=== PATIENT | female | born 1935 | race Caucasian/White ===

== ENCOUNTER 2017-09-24 19:55 | Inpatient (IN) | payer OTHER, MEDICARE ==
[~2017-09-24] VITALS: Ht 152.4 cm; Wt 64.6 kg
[~2017-09-24 19:55] MED LIST: ATENOLOL50 M1 PO; ATIVAN0.5 M1 PO; AUGMENTIN 875-1 EACH PO; CENTRUM SILVER1 EAC3 PO; COUMADIN 2.5 M2.5 MG PO; COUMADIN 5 MG TA5 MG PO; DELZICOL400 MG PO; ENTOCORT EC3 MG PO; ESCITALOPRAM OX10 MG PO; FERROUS SULFAT325 M3 PO; FUROSEMIDE40 M1 PO; IMODIUM 2 MG. CA2 MG PO; KLOR-CON M1010 ME1 PO; LISINOPRIL20 M1 PO; LOMOTIL 0.025 M1 TAB PO; LOPERAMIDE2 M2 PO; MULTAQ 400MG400 MG PO; Mycostatin Susp PO; OCUVITE WITH L1 EACH PO; PRAVASTATIN SOD40 M2 PO; PREDNISONE 20MG20 MG PO; PREDNISONE20 MG PO; PREDNISONE5 MG PO; TESSALON PERLE100 M1 PO; TRAMADOL HCL50 M1 PO; TYLENOL EXTRA500 M2 PO; VALACYCLOVIR1 GM PO; VENTOLIN HFA18 GM INH
--- NOTE | 2017-09-24 20:43 | ED GI/GU/ABDOMINAL COMPLAINT ---
History of Present Illness General Chief Complaint: General Adult Stated Complaint: "ABD PAIN,TEMP,SWEATING, NAUSEA AND VOMITING" Source: patient, family Exam Limitations: no limitations Vital Signs & Intake/Output Vital Signs & Intake/Output Vital Signs Date Time Temp Pulse Resp B/P B/P Pulse O2 O2 Flow FiO2 Mean Ox Delivery Rate 09/247 97.6 62 18 164/78 97 Room Air 09/25 2003 97.7 59 16 130/75 97 Room Air ED Intake and Output 09/25 0000 09/24 1200 Intake Total 1000 Output Total Balance 1000 Intake, IV 1000 Patient 134 lb Weight Weight Reported by Patient Measurement Method Allergies Coded Allergies: penicillamine (PER PT BREAKS OUT IN RASH ON HANDS 04/27/15) Reconcile Medications Acetaminophen (Tylenol Xstr) 500 MG TAB 1 TAB PO PRN PAIN (Reported) Adalimumab (Humira Pen) 40 MG/0.8 ML PEN.IJ.KIT UC (Reported) Albuterol Sulfate (Ventolin Hfa) 90 MCG HFA.AER.AD 2 PUF INH Q4-6 PRN PRN cough/wheeze Atenolol 50 MG TAB 1 TAB PO QAM BP (Reported) Atenolol 50 MG TABLET 50 MG PO NIGHTLY HTN (Reported) Cu/Se/Vit A/Vit C/Vit E/Zinc (Ocuvite) 1 TAB TAB 1 TAB PO DAILY SUPPLEMENT ( Reported) Dabigatran Etexilate Mesylate (Pradaxa 150 MG) 150 MG CAPSULE 150 MG PO BID AFIB (Reported) Digoxin 125 MCG TABLET 125 MCG PO DAILY HEART (Reported) Diltiazem HCl (Diltiazem 24HR ER) 120 MG CAP.ER.24H 120 MG PO DAILY HEART ( Reported) Escitalopram Oxalate 10 MG TAB 1 TAB PO DAILY MENTAL HEALTH (Reported) Ferrous Sulfate 325 MG TAB 1 TAB PO TID SUPPLEMENT (Reported) Furosemide 40 MG TAB 1 TAB PO DAILY DIURETIC (Reported) Lisinopril 20 MG TAB 1 TAB PO QAM BP (Reported) Loperamide Hydrochloride (Loperamide) 2 MG TAB 1 TAB PO DAILY PRN DIARRHEA ( Reported) Lorazepam (Ativan) 0.5 MG TAB 1 TAB PO DAILY PRN ANXIETY (Reported) Multivitamin, Minerals, and (Centrum Silver) 1 TAB TAB 1 TAB PO DAILY SUPPLEMENT (Reported) Potassium Chloride (Klor-Con M10) [address] 1 TAB PO DAILY SUPPLEMENT ( Reported) Pravastatin Sodium 40 MG TAB 1 TAB PO QPM CHOLESTEROL (Reported) TRAMADOL HCL (Tramadol) 50 MG TAB 1 TAB PO DAILY PRN PAIN (Reported) Triage Note: REPORTS ABDOMINAL PAIN AND NAUSEA SINCE LAST NIGHT. LAST BM MONDAY AM. Triage Nurses Notes Reviewed? yes ? N Is pt currently ? No Duration: constant Timing: recent history Quality/Severity: moderate Severity Numbers: 5 Location: generalized abdomen Radiation: no radiation HPI: Patient is an 82-year-old female with past medical history of BRADYCARDIA WITH SSS PACEMAKER, A.fib PRADAXA, Hypertension, hyperlipidemia, Crohn's disease, arthritis, and macular degeneration and small bowel structure and who presents emergency room with a 24-hour history of gradual onset of abdominal pain that is generalized with distention patient is unable tolerate anything by mouth last bowel movement was Monday. Denies any fever chills back pain (Eladio Del Toro) Past History Travel History Traveled to [place] past 21 day No Medical History Any Pertinent Medical History? 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 status post pacemaker Psychosocial History Who do you live with Patient/Self Services at Home None What is your primary language Macedonian Tobacco Use: Never used Family History Family History, If Any: MOTHER, , Age 94; Cause: Natural . FATHER, , Age 33; Cause: Accident. Hx Contributory? No (Eladio Del Toro) Review of Systems Review of Systems Constitutional: Reports: no symptoms. EENTM: Reports: no symptoms. Respiratory: Reports: no symptoms. Cardiovascular: Reports: no symptoms. GI: Reports: see HPI, abdominal pain. Genitourinary: Reports: no symptoms. Musculoskeletal: Reports: no symptoms. Skin: Reports: no symptoms. Neurological/Psychological: Reports: no symptoms. Hematologic/Endocrine: Reports: no symptoms. Immunologic/Allergic: Reports: no symptoms. All Other Systems: Reviewed and Negative (Eladio Del Toro) Physical Exam Physical Exam General Appearance: no apparent distress, alert Head: atraumatic Eyes: Bilateral: normal appearance. Ears, Nose, Throat, Mouth: moist mucous membrane Neck: normal inspection Respiratory: no respiratory distress Cardiovascular: irregularly irregular Gastrointestinal: distention, tenderness, HYPERACTIVE BOWEL SOUNDS Extremities: normal range of motion Neurologic/Psych: no motor/sensory deficits, awake Core Measures ACS in differential dx? No Sepsis Present: No Sepsis Focused Exam Completed? No (Eladio Del Toro) Progress Differential Diagnosis: appendicitis, biliary colic, bowel obstruction, colon cancer, diverticulitis, endometritis, esophageal varices, inflamm bowel dis, kidney stone, pancreatitis, PID/cervicitis, peptic ulcer, PUD/GERD, perforated viscous, SBO, UTI/pyelo Plan of Care: Orders Procedure Date/time Status Nothing by Mouth 09/25 B Active EKG 09/25 0013 Active LACTIC ACID 09/24 2354 Complete Admit to inpatient 09/24 2340 Active LACTIC ACID 09/24 2054 Complete PARTIAL THROMBOPLASTIN TIME 09/24 2052 Complete PROTHROMBIN TIME 09/24 2052 Complete COMPREHENSIVE METABOLIC PANEL 09/24 2052 Complete CBC WITHOUT DIFFERENTIAL 09/24 2052 Complete TYPE & SCREEN (NOT X-MATCH) 09/24 2052 Complete Current Medications Sig/Yesy Start time Last Medication Dose Stop Time Status Admin Lorazepam 1 MG ONCE ONE 09/24 2144 CAN (Ativan) 09/24 2145 Laboratory Tests 09/24/17 2352: Lactic Acid 1.7 09/24/172112: Lactic Acid 1.6 09/24/172112: Anion Gap 11, Estimated GFR 48 L, BUN/Creatinine Ratio 22.7, Glucose 127 H, Calcium 10.6 H, Total Bilirubin 1.2, AST 48 H, ALT 56 H, Alkaline Phosphatase 81, Total Protein 8.0, Albumin 4.3, Globulin 3.7, Albumin/Globulin Ratio 1.2, PT 16.6 H, INR 1.52 H, APTT 67 H, CBC w Diff NO MAN DIFF REQ, RBC 4.42, MCV 99.5 H, MCH 33.4 H, MCHC 33.6, RDW 14.6 H, MPV 8.2, Gran % 78.4 H, Lymphocytes % 13.9 L, Monocytes % 7.5, Eosinophils % 0, Basophils % 0.2, Absolute Granulocytes 11.3 H, Absolute Lymphocytes 2.0, Absolute Monocytes 1.1 H, Absolute Eosinophils 0, Absolute Basophils 0 Patient upon initial presentation has concerns of small bowel obstruction due to x-ray findings Discussed patient with surgical PA who discussed the clinical presentation to Dr. Lewis who advised that patient will be going to the OR tonight for concerns of bowel necrosis Patient did take Pradaxa today praxabind was administered due to patient going to the OR tonight Discussed disposition plan with patient Diagnostic Imaging: Viewed by Me: Radiology Read, CT Scan. Radiology Impression: acute abnormality Initial ED EKG: AFIB Comments: PATIENT: PRATIK JERONIMO PRESENT AGE: 82 PATIENT ACCOUNT NO: [id number] : 35 LOCATION: [facility] ORDERING PHYSICIAN: Eladio RENO SERVICE DATE: 09/24/17 EXAM TYPE: CAT - CT ABD & PELVIS W IV CONTRAST EXAMINATION: CT ABDOMEN AND PELVIS WITH CONTRAST CLINICAL INFORMATION: Concern for small bowel obstruction. COMPARISON: Radiograph from earlier today. CT from 12/22/2015. TECHNIQUE: Multidetector volumetric imaging was performed of the abdomen and pelvis following IV administration of 95 mL of Optiray 320 intravenous contrast. Sagittal and coronal reformatted images were obtained on the technologist's workstation. DLP: 261 mGy-cm FINDINGS: LUNG BASES: Nodular opacity at the right lung base measuring 1 cm. This is similar to prior, suggesting chronic scarring. The visualized cardiac structures are unremarkable. LIVER, GALLBLADDER, AND BILIARY TREE: The liver is normal in size, shape, and attenuation. No focal hepatic lesion.. Status post cholecystectomy. There is diffuse intrahepatic and extrahepatic biliary ductal dilatation. This appears increased from the previous CT from 2016. The common bile duct measures up to 2 cm. No ductal filling defect is seen. PANCREAS: Unremarkable. SPLEEN: Unremarkable. ADRENAL GLANDS: Unremarkable. KIDNEYS AND URETERS: The kidneys are normal in size, shape, and attenuation. No hydronephrosis, hydroureter, or calculi seen. No perinephric stranding. Multiple bilateral renal cysts. BLADDER: Unremarkable. GASTROINTESTINAL TRACT: The stomach is unremarkable. There is diffuse small bowel dilatation. This extends to a transition point within a right inguinal hernia, with the bowel entering the hernia dilated and the bowel exiting the hernia decompressed. Scattered stool within the colon which is otherwise decompressed. Colonic diverticulosis without diverticulitis. No free air or free fluid. ABDOMINAL WALL: Small right inguinal hernia containing small bowel which is obstructing. LYMPH NODES: Normal. VASCULAR: Normal caliber aorta. Mild atherosclerotic calcifications. PELVIC VISCERA: Unremarkable. OSSEOUS STRUCTURES: No acute or suspicious osseous abnormality. Prominent scoliotic curvature of the spine with multilevel degenerative changes. IMPRESSION: Small bowel obstruction with transition point at a right inguinal hernia. This appearance corresponds with the appearance on prior radiograph. Status post cholecystectomy. Diffuse intrahepatic and extrahepatic biliary ductal dilatation, increased from prior. No ductal filling defect is seen. DICTATED BY: Richard Lee MD DATE/TIME DICTATED:09/24/172315 LEGAL ANALYST:DONNA DATE/TIME TRANSCRIBED:09/24/17 (Eladio Del Toro) Departure Departure Disposition: STILL A PATIENT Condition: Guarded Clinical Impression Primary Impression: Small bowel obstruction Secondary Impressions: Incarcerated hernia Referrals: Monserrat Montes (PCP/Family) Departure Forms: Customer Survey General Discharge Information (Eladio Del Toro) OR/GI Note Spoke With: Jorje Lewis DO ED Treatment Decision: PRATIK JERONIMO requires urgent operative management or an emergent procedure that cannot be performed in the Emergency Room setting. Transport To: [facility] PA/BUSGIRL Co-Sign Statement Statement: ED Attending supervision documentation- [X] I saw and evaluated the patient. I have also reviewed all the pertinent lab results and diagnostic results. I agree with the findings and the plan of care as documented in the PA's/BUSGIRL's documentation. [X] I have reviewed the ED Record and agree with the PA's/BUSGIRL's documentation. [] Additions or exceptions (if any) to the PAs/BUSGIRL's note and plan are summarized below: [Incarcerated hernia. Unable to reduce in the emergency department. SHe will require operative correction.] (Sotero TAPIA,Mayito Underwood) Critical Care Note Critical Care Note Critical Care Time: 30-74 min (Eladio Del Toro) (Eladio Del Toro)
--- NOTE | 2017-09-24 20:45 | RADIOLOGY REPORT ---
EXAMINATION: XR ABDOMEN CLINICAL INDICATION: Abdominal pain. Constipation. COMPARISON: Abdominal radiography 06/07/2011. TECHNIQUE: AP view of the abdomen. FINDINGS: There are dilated loops of small bowel and a paucity of gas in the colon, concerning for small bowel obstruction. No pneumoperitoneum demonstrated on this supine radiograph. Right upper quadrant surgical clips. Scattered vascular calcifications. Decreased bone mineral density. Convex leftward thoracolumbar curvature. IMPRESSION: Dilated small bowel loops concerning for small bowel obstruction. This can be further evaluated with CT scan of the abdomen and pelvis.
[2017-09-24 21:23] LABS: ABSOLUTE BASOPHIL COUNT 0 /CUMM (0.0-0.2); ABSOLUTE EOSINOPHIL COUNT 0 /CUMM (0.0-0.7); ABSOLUTE GRANULOCYTE CT 11.3 /CUMM (1.4-6.5); ABSOLUTE MONOCYTE COUNT 1.1 /CUMM (0.10-0.60); BASOPHIL % 0.2 % (0.0-2.0); EOSINOPHIL % 0 % (0-5); HEMATOCRIT 43.9 % (37-47); MEAN CORPUSCULAR HGB 33.4 PG (27.0-31.0); MEAN CORPUSCULAR HGB CONC 33.6 G/DL (33.0-37.0); MEAN CORPUSCULAR VOLUME 99.5 FL (81.0-99.0); MEAN PLATELET VOLUME 8.2 FL (7.4-10.4); PLATELET COUNT 298 /CUMM (130-400); RBC DISTRIBUTION WIDTH 14.6 % (11.5-14.5); RED BLOOD CELL CT 4.42 /CUMM (4.20-5.40); WHITE BLOOD CELL COUNT 14.4 /CUMM (4.8-10.8)
[2017-09-24 21:24] LABS: GRANULOCYTE % 78.4 % (42.2-75.2)
--- NOTE | 2017-09-24 21:32 | History & Physical Pre-Op ---
Spring Souza 09/24/171: General Information and HPI History of Present Illness: 82yoF presents to ED with persistant abd pain since yesterday am, with nausea and green bilious vomiting at home last night and today. PMHx afib on pradaxa ( last dose this am), sss sp ppm, crohns disease on humira (Dr. Marti), htn, hyperlipidemia, macular degeneration, sp hysterectomy, sp cholecystectomy. Describes pain as generalized throughout abdomen, though worst in right groin. Per pt, she has a known right inguinal fat containing hernia that she has not had fixed. Last BM was this am, small and hard. no appetite, tried to eat a yogurt at lunch today though not hungry. no cp/sob. No urinary complaints. Allergies/Medications Allergies: Coded Allergies: penicillamine (PER PT BREAKS OUT IN RASH ON HANDS 04/27/15) Home Med list Acetaminophen (Tylenol Xstr) 500 MG TAB 1 TAB PO PRN PAIN (Reported) Adalimumab (Humira Pen) 40 MG/0.8 ML PEN.IJ.KIT UC (Reported) Albuterol Sulfate (Ventolin Hfa) 90 MCG HFA.AER.AD 2 PUF INH Q4-6 PRN PRN cough/wheeze Atenolol 50 MG TAB 1 TAB PO QAM BP (Reported) Atenolol 50 MG TABLET 50 MG PO NIGHTLY HTN (Reported) Cu/Se/Vit A/Vit C/Vit E/Zinc (Ocuvite) 1 TAB TAB 1 TAB PO DAILY SUPPLEMENT ( Reported) Dabigatran Etexilate Mesylate (Pradaxa 150 MG) 150 MG CAPSULE 150 MG PO BID AFIB (Reported) Digoxin 125 MCG TABLET 125 MCG PO DAILY HEART (Reported) Diltiazem HCl (Diltiazem 24HR ER) 120 MG CAP.ER.24H 120 MG PO DAILY HEART ( Reported) Escitalopram Oxalate 10 MG TAB 1 TAB PO DAILY MENTAL HEALTH (Reported) Ferrous Sulfate 325 MG TAB 1 TAB PO TID SUPPLEMENT (Reported) Furosemide 40 MG TAB 1 TAB PO DAILY DIURETIC (Reported) Lisinopril 20 MG TAB 1 TAB PO QAM BP (Reported) Loperamide Hydrochloride (Loperamide) 2 MG TAB 1 TAB PO DAILY PRN DIARRHEA ( Reported) Lorazepam (Ativan) 0.5 MG TAB 1 TAB PO DAILY PRN ANXIETY (Reported) Multivitamin, Minerals, and (Centrum Silver) 1 TAB TAB 1 TAB PO DAILY SUPPLEMENT (Reported) Potassium Chloride (Klor-Con M10) [address] TAB PO DAILY SUPPLEMENT ( Reported) Pravastatin Sodium 40 MG TAB 1 TAB PO QPM CHOLESTEROL (Reported) TRAMADOL HCL (Tramadol) 50 MG TAB 1 TAB PO DAILY PRN PAIN (Reported) Past History Medical History EENT: hearing loss, macular degeneration Cardiovascular: AFIB, hypertension, hyperlipidemia Gastrointestinal: Crohn's disease Renal: RENAL INSUFFICENCY Musculoskeletal: ARTHRITIS Psychiatric: anxiety, depression Blood Disorders: anemia History of MRSA: Yes History of VRE: No History of CDIFF: No Surgical History Pertinent Surgical History: cholecystectomy, hysterectomy, knee replacement (B/L ), PPM rotator cuff surgery. status post pacemaker Past Family/Social History Family History Relations & Conditions if any MOTHER, , Age 94; Cause: Natural . FATHER, , Age 33; Cause: Accident. Psychosocial History Who Do You Live With? self Services at Home None Primary Language: Tajik Living Will? unknown Power of Citizenship Instructor/HCP? unknown Functional Ability ADLs Independent: dressing, eating, toileting, bathing. Ambulation: independent IADLs Independent: shopping, housework, finances, food prep, telephone, transportation , medication admin. Exam & Diagnostic Data Last 24 Hrs of Vital Signs/I&O Vital Signs Date Time Temp Pulse Resp B/P B/P Pulse O2 O2 Flow FiO2 Mean Ox Delivery Rate 09/25 2003 97.7 59 16 130/75 97 Room Air Physical Exam: gen- nad card-s1s2 pulm- ctab abd-softly distended, ttp throughout, firm tender mass right groin-nonreduciblee , without skin changes. ext- +edema bl le, calves soft Diagnostic Data Other Results AXR: SBO CT AP: pending Assessment/Plan Assessment/Plan: A- 82yoF with Sbo, likely due to incarcerated r inguinal hernia, with hx afib on pradaxa with last dose this am, otherwise stable P- npo ?ngt attempt reduction at bedside dw dr lewis As Ranked By This Provider Problem List: 1. SMALL BOWEL OBSTRUCTION 2. Atrial fibrillation 3. History of - hysterectomy 4. History of cholecystectomy 5. Essential hypertension 6. Implantation of cardiac pacemaker 7. Replacement of total knee joint 8. Right inguinal hernia 9. Crohns disease Jorje Lewis DO 09/25/17 0250: Attending MD Review Statement Attending Statement Attending MD Statement: examined this patient, discuss w/resident/PA/REGIONAL PROJECT MANAGER, agreed w/resident/PA/REGIONAL PROJECT MANAGER, reviewed EMR data (avail), reviewed images Attending Assessment/Plan: Patient seen and examined, agree with above. Abdominal pain/N/V since last night , noticed the right groin bulge today. AVSS. Abd-softly distended, +right groin hernia non-reducible and tender. Labs reviewed. CT scan - SBO with transition point in the groin hernia. NPO/IVF, plan for hernia repair with possible bowel resection tonight. D/W patient and ED staff.
[2017-09-24 21:35] LABS: PT 16.6 SEC (9.4-12.5); PTT 67 SEC (25-37)
[2017-09-24] MEDS ORDERED: PRADAXA150 M1 PO (21:41)
[2017-09-24] MEDS ORDERED: DIGOXIN125 MCG PO (21:42)
[2017-09-24] MEDS ORDERED: HUMIRA PEN40 MG/0.8 (21:43)
[2017-09-24] MEDS ORDERED: DILTIAZEM 24HR120 MG PO (21:43)
--- NOTE | 2017-09-24 23:26 | CT SCAN REPORT ---
EXAMINATION: CT ABDOMEN AND PELVIS WITH CONTRAST CLINICAL INFORMATION: Concern for small bowel obstruction. COMPARISON: Radiograph from earlier today. CT from 12/22/2015. TECHNIQUE: Multidetector volumetric imaging was performed of the abdomen and pelvis following IV administration of 95 mL of Optiray 320 intravenous contrast. Sagittal and coronal reformatted images were obtained on the technologist's workstation. DLP: 261 mGy-cm FINDINGS: LUNG BASES: Nodular opacity at the right lung base measuring 1 cm. This is similar to prior, suggesting chronic scarring. The visualized cardiac structures are unremarkable. LIVER, GALLBLADDER, AND BILIARY TREE: The liver is normal in size, shape, and attenuation. No focal hepatic lesion.. Status post cholecystectomy. There is diffuse intrahepatic and extrahepatic biliary ductal dilatation. This appears increased from the previous CT from 2016. The common bile duct measures up to 2 cm. No ductal filling defect is seen. PANCREAS: Unremarkable. SPLEEN: Unremarkable. ADRENAL GLANDS: Unremarkable. KIDNEYS AND URETERS: The kidneys are normal in size, shape, and attenuation. No hydronephrosis, hydroureter, or calculi seen. No perinephric stranding. Multiple bilateral renal cysts. BLADDER: Unremarkable. GASTROINTESTINAL TRACT: The stomach is unremarkable. There is diffuse small bowel dilatation. This extends to a transition point within a right inguinal hernia, with the bowel entering the hernia dilated and the bowel exiting the hernia decompressed. Scattered stool within the colon which is otherwise decompressed. Colonic diverticulosis without diverticulitis. No free air or free fluid. ABDOMINAL WALL: Small right inguinal hernia containing small bowel which is obstructing. LYMPH NODES: Normal. VASCULAR: Normal caliber aorta. Mild atherosclerotic calcifications. PELVIC VISCERA: Unremarkable. OSSEOUS STRUCTURES: No acute or suspicious osseous abnormality. Prominent scoliotic curvature of the spine with multilevel degenerative changes. IMPRESSION: Small bowel obstruction with transition point at a right inguinal hernia. This appearance corresponds with the appearance on prior radiograph. Status post cholecystectomy. Diffuse intrahepatic and extrahepatic biliary ductal dilatation, increased from prior. No ductal filling defect is seen.
--- NOTE | 2017-09-25 03:05 | Operative Report ---
Operative/Inv Procedure Report Surgery Date: 09/25/17 Name of Procedure: Open right femoral hernia repair with mesh, laparotomy, open small bowel resection Pre-Operative Diagnosis: Incarcerated right inguinal hernia with obstruction Post-Operative Diagnosis: Same Estimated Blood Loss: less than 50ml Surgeon/Button Decorating Machine Operator: Jorje Bryant Anesthesia: general endotracheal tube IV Fluids: 1300 cc Drains: None Specimens: Portion of small bowel Complications: None Condition: Stable Operative Indication: This is an 82-year-old female who presented to the emergency room with nausea vomiting and some abdominal pain. Patient was found to have an incarcerated right femoral hernia causing obstruction. An open hernia repair with possible small bowel resection was discussed in detail. All risks including but not limited to bleeding, infection, and injury to surrounding bowel were discussed in detail. I also explained to the patient that given her history of Crohn's it may complicate recovery if a small bowel resection is needed. It may cause fistulas and breakdown of the anastomosis. The patient understands everything and wishes to proceed. Operative/Procedure Note Note: The patient was brought to the operating room and placed on table in supine position. Venodyne stockings were placed in adequate general endotracheal anesthesia was obtained. Patient was prepped and draped in standard surgical fashion. Began the procedure by making approximately 5 cm incision over the patient's right groin. The incision was carried through subcutaneous tissue to Alecia's fascia which was opened using Bovie electrocautery. External oblique aponeurosis was encountered and we noted a hard bulge inferior to the inguinal canal. Dissection was then carried below the inguinal canal and we noted a necrotic/ischemic appearing hernia sac coming out of the femoral canal. The hernia sac was circumferentially dissected and opened and the small bowel within the hernia sac appeared ischemic as well. The small bowel was then reduced and the right groin was irrigated. Following this a Gail synecor mesh was cut to size and made into a plug and inserted into the femoral canal. It was secured using 2-0 Prolene suture. The right groin was once again irrigated. Fascia was then reapproximated using 2-0 Vicryl suture and 3-0 Vicryl suture. The skin was closed using bethany. Following this a 5 cm midline incision was made around the umbilicus. The incision was carried down to the fascia and the fascia was opened the length of the incision. Right away we noted distended and collapsed loops of small bowel. Small bowel was then brought out of the abdominal cavity and there was a loop that was adhesed down into the right groin. That small bowel was then dissected out and brought into view and it was found that that was the area of the incarcerated small bowel. At small bowel still appeared ischemic so a decision was made to do a small bowel resection. Small bowel was divided proximally and distally to the area of ischemia using 60 mm Endo LAVONNE araujo staple load. The mesentery was divided using clamps and ties. Specimen was then handed off the field. Following this a side to side small bowel anastomosis was created using a 60 mm Endo LAVONNE araujo stapler as well. Common enterotomy was closed using another stapler also. We examined the anastomosis it appeared intact and widely patent. Several 3-0 Silk sutures were placed in the crotch of the staple line and along the anterior line imbricating it. Small mesenteric defect was closed using 2-0 silk suture. Once again examined the anastomosis and appeared intact without any bleeding. Small bowel was then returned back into the abdominal cavity and the abdominal cavity was irrigated until clear. Omentum was placed over the small bowel. Abdominal fascia was closed using #1 Maxon suture in a running fashion. Skin was closed using bethany. Sterile dressings were placed over both incisions. The patient was successfully extubated and transferred to the recovery room in stable condition. The patient tolerated procedure well no complications. Findings: Incarcerated loop of small bowel appeared ischemic within the femoral hernia, GORE synecor mesh used CC: Nayely RENO,Monserrat Cota
[2017-09-25 05:48] VITALS: BP 110/60
--- NOTE | 2017-09-25 08:12 | PN- General Surgery ---
See Addendum Subjective Subjective: POC s/p lap to open repair inc sm bowel hernia w/sm bowel resection doing well this am deneis cp sob, mild abd pain Objective Vital Signs and I&Os Vital Signs Date Time Temp Pulse Resp B/P B/P Pulse O2 O2 Flow FiO2 Mean Ox Delivery Rate 09/26 547 98.2 54 20 110/60 95 Nasal 6.0L Cannula 09/25 0448 Nasal 6.0L Cannula 09/24 2347 97.6 62 18 164/78 97 Room Air 09/25 2003 97.7 59 16 130/75 97 Room Air Intake & Output 09/25 1600 09/25 0809/25 0000 09/24 1600 09/24 0000 Intake Total 150 1000 Output Total 200 Balance -50 1000 Intake, IV 150 1000 Output, Urine 200 Patient 135 lb 134 lb Weight Weight Bed scale Reported by Patient Measurement Method Physical Exam: cv: afib lungs: clear abd: softly distended +bs, drsg drg no guarding to palp ext: warm, distal cms intact Assessment/Plan Assessment/Plan surgical stable discussed with dr clemente plan d/c ngt ice chips today oob/ambulate restart pradaxa trevin 8/[address] Marti(known patient on Humira) consult dr oakley, cardilogy, afib/pradaxa, and need for tele Core Measures Venous Thromboembolism VTE Risk Factors Age>40 No Mechanical VTE Prophylaxis d/t N/A MechProphylax Ordered No VTE Pharm Prophylaxis d/t NA PharmProphylax ordered
[2017-09-25 08:25] LABS: ABSOLUTE BASOPHIL COUNT 0 /CUMM (0.0-0.2); ABSOLUTE EOSINOPHIL COUNT 0 /CUMM (0.0-0.7); ABSOLUTE LYMPH COUNT 0.8 /CUMM (1.2-3.4); EOSINOPHIL % 0 % (0-5); RBC DISTRIBUTION WIDTH 14.7 % (11.5-14.5); RED BLOOD CELL CT 3.85 /CUMM (4.20-5.40)
[2017-09-25 08:37] LABS: ABSOLUTE GRANULOCYTE CT 9.9 /CUMM (1.4-6.5); ABSOLUTE MONOCYTE COUNT 1.2 /CUMM (0.10-0.60); BASOPHIL % 0.2 % (0.0-2.0); GRANULOCYTE % 82.7 % (42.2-75.2); MEAN CORPUSCULAR HGB 33.7 PG (27.0-31.0); MEAN CORPUSCULAR HGB CONC 33.6 G/DL (33.0-37.0); MEAN CORPUSCULAR VOLUME 100.5 FL (81.0-99.0); MEAN PLATELET VOLUME 9.3 FL (7.4-10.4); PLATELET COUNT 227 /CUMM (130-400)
[2017-09-25 08:45] LABS: HEMATOCRIT 38.7 % (37-47)
--- NOTE | 2017-09-25 09:58 | Cons- Cardiology ---
General Information and HPI Consulting Request Date of Consult: 09/25/17 Requested By: Jorje Lewis DO Reason for Consult: Management of anticoagulation Source of Information: patient, old records History of Present Illness: 82-year-old female past medical history chronic atrial fibrillation on Pradaxa, HFpEF, Crohn's disease, hyperlipidemia, hypertension, status post PPM, arthritis today postoperative day 1 following abdominal surgery for incarcerated hernia. Surgical service requested cardiology evaluation for recommendations regarding anticoagulation management. Patient currently denies chest pain, palpitations, dyspnea at rest. Patient denies PND/orthopnea, lower family swelling. Patient has been compliant with all medications as an outpatient. Patient reports mild discomfort over the surgical site. Allergies/Medications Allergies: Coded Allergies: penicillamine (PER PT BREAKS OUT IN RASH ON HANDS 04/27/15) Home Med List: Acetaminophen (Tylenol Extra Strength) 500 MG TABLET 1 TAB PO DAILY PRN PAIN (Reported) Adalimumab (Humira Pen) 40 MG/0.8 ML PEN.IJ.KIT UC (Reported) Albuterol Sulfate (Ventolin Hfa) 90 MCG HFA.AER.AD 2 PUF INH Q4-6 PRN PRN cough/wheeze Atenolol 50 MG TABLET 1 TAB PO DAILY HEART (Reported) Atenolol 50 MG TABLET 50 MG PO NIGHTLY HTN (Reported) Dabigatran Etexilate Mesylate (Pradaxa 150 MG) 150 MG CAPSULE 150 MG PO BID AFIB (Reported) Digoxin 125 MCG TABLET 125 MCG PO DAILY HEART (Reported) Diltiazem HCl (Diltiazem 24HR ER) 120 MG CAP.ER.24H 120 MG PO DAILY HEART ( Reported) Escitalopram Oxalate 10 MG TABLET 1 TAB PO DAILY MENTAL HEALTH (Reported) Ferrous Sulfate 325 MG (65 MG IRON) TABLET 1 TAB PO TID SUPPLEMENT (Reported) Furosemide 40 MG TABLET 1 TAB PO DAILY WATER RETENTION (Reported) Lisinopril 20 MG TABLET 1 TAB PO DAILY HEART (Reported) Loperamide HCl (Loperamide) 2 MG CAPSULE 1 CAP PO DAILY PRN DIARRHEA ( Reported) Lorazepam (Ativan) 0.5 MG TABLET 1 TAB PO DAILY NEEDED PRN ANXIETY ( Reported) Multivit-Min/FA/Lycopen/Lutein (Centrum Silver Tablet) 0.4 MG-300 MCG-250 MCG TABLET 1 TAB PO DAILY VITAMIN SUPPORT (Reported) Potassium Chloride (Klor-Con M10) 10 MEQ TAB.ER.PRT 1 TAB PO DAILY VITAMIN SUPPORT (Reported) Pravastatin Sodium 40 MG TABLET 1 TAB PO QPM CHOLESTEROL (Reported) Tramadol HCl 50 MG TABLET 1 TAB PO DAILY PRN PAIN (Reported) Vit A,C & E/Lutein/Minerals (Ocuvite With Lutein Tablet) 1,000-60-2 TABLET 1 TAB PO DAILY EYE (Reported) Current Medications: Current Medications Sig/Yesy Start time Last Medication Dose Route Stop Time Status Admin Acetaminophen 1,000 MG Q6P PRN 09/25 024 AC N/A 1 UNIT IV Albuterol Sulfate 2 PUF Q4-6 PRN PRN 09/25 0300 AC 09/25 INH 0841 Atenolol 50 MG DAILY 09/25 899 AC 09/25 PO 0835 Atenolol 50 MG 2100 09/25 033 DC PO Ceftriaxone Sodium 1,000 MG DAILY 09/25 899 AC 09/25 IV 0840 Dabigatran 150 MG BID 09/26 899 AC PO Dextrose/Sodium 1,000 ML CONTINOUS INFUSION 09/25 299 AC Chloride IV Digoxin 0.125 MG DAILY 09/25 899 AC 09/25 PO 0835 Diltiazem HCl 120 MG DAILY 09/25 899 AC 09/25 PO 0835 Heparin Sodium 5,000 UNIT Q8 09/25 1400 AC (Porcine) SC 09/25 2200 Lorazepam 0.5 MG Q6-PRN PRN 09/25 299 AC IV Lorazepam 0.5 MG ONCE ONE 09/24 2199 DC 09/24 IV 09/24 2200 215 Lorazepam 0 .STK-MED ONE 09/24 2154 DC .ROUTE Lorazepam 1 MG ONCE ONE 09/24 2144 CAN IV 09/24 214 Metronidazole 500 MG IQ8 09/26 799 AC 09/25 N/A 1 UNIT IV 0828 Morphine Sulfate 4 MG Q2-3 HRS NEEDED.. 09/26 399 AC IV Morphine Sulfate 2 MG Q2-3 HRS NEEDED.. 09/25 244 AC 09/25 IV 0408 Morphine Sulfate 0 .STK-MED ONE 09/24 2153 DC .ROUTE Morphine Sulfate 2 MG ONCE ONE 09/24 2144 DC 09/24 IV 09/24 2145 215 Ondansetron HCl 4 MG Q6P PRN 09/25 244 AC 09/25 IV 0325 Ondansetron HCl 0 .STK-MED ONE 09/24 2130 DC .ROUTE Ondansetron HCl 4 MG ONCE ONE 09/24 2099 DC 09/24 IV 09/24 Pantoprazole Sodium 40 MG DAILY 09/25 899 AC 09/25 IV 08 Sodium Chloride 1,000 ML BOLUS ONE 09/24 2100 DC 09/24 IV 09/24 Review of Systems Review of Systems: As per HPI. Patient does report some discomfort over surgical site. Past History Travel History Traveled to [place] past 21 day No Medical History EENT: hearing loss, macular degeneration Cardiovascular: AFIB, hypertension, hyperlipidemia Gastrointestinal: Crohn's disease Renal: RENAL INSUFFICENCY Musculoskeletal: ARTHRITIS Psychiatric: anxiety, depression Blood Disorders: anemia Surgical History Surgical History: cholecystectomy, hysterectomy, knee replacement (B/L), PPM rotator cuff surgery. status post pacemaker Family History Relations & Conditions If Any: MOTHER, , Age 94; Cause: Natural . FATHER, , Age 33; Cause: Accident. Psychosocial History Who Do You Live With? self Services at Home: None Primary Language: Mongolian Smoking Status: Never Smoked Living Will? unknown Power of Endbander/HCP? unknown Functional Ability ADLs Independent: dressing, eating, toileting, bathing. Ambulation: independent IADLs Independent: shopping, housework, finances, food prep, telephone, transportation , medication admin. Exam & Diagnostic Data Vital Signs and I&O Vital Signs Date Time Temp Pulse Resp B/P B/P Pulse O2 O2 Flow FiO2 Mean Ox Delivery Rate 09/25 834 54 110/60 09/25 0548 98.2 54 20 110/60 95 Nasal 6.0L Cannula 09/25 0448 Nasal 6.0L Cannula 09/247 97.6 62 18 164/78 97 Room Air 09/25 2003 97.7 59 16 130/75 97 Room Air Intake & Output 09/25 1600 09/25 0000 09/24 1600 09/24 0000 Intake Total 150 1000 Output Total 200 Balance -50 1000 Intake, IV 150 1000 Output, Urine 200 Patient 61.235 kg 60.781 kg Weight Weight Bed scale Reported by Patient Measurement Method Physical Exam: General: no apparent distress, elderly lady lying in bed HEENT: NCAT, NO JVD Heart: s1s2, irregular rhythm, bradycardic, no MRG Lungs: CTA b/l Abd: soft, surgical dressings in place with no signs of bleeding, swelling, erythema Ext: no peripheral edema Diagnostic Data EKG Results afib ~65bpm, LAD, IVCD CXR Results none this admission Other Results Telemetry personally reviewed: Ventricularly paced rhythm ~50bpm, with occasional natively paced beat, likely underlying atrial fibrillation Assessment/Plan Assessment/Plan 1. Chronic atrial fibrillation on Pradaxa, anticoagulant she currently being held 2. HFpEF 3. Hypertension 4. Hyperlipidemia 5. Status post laparoscopic to open repair of incarcerated small bowel hernia with small bowel resection The patient is hemodynamically stable, not currently in RVR. Pacing appropriately. [id number] is at least 5. This constitutes a yearly stroke risk of 7.2%, constituting an approximate stroke risk of 0.02% in the next 24 hours. Long-term anticoagulation is indicated, however it would be reasonable to hold Pradaxa for the next 24 hours, and restart anticoagulation with Pradaxa 150 mg p.o. twice daily as soon as possible. Thank you for the opportunity to assist in the care of your patient. Consult Acknowledgment - Thank you for your consult request.
[2017-09-25 15:29] VITALS: BP 108/58
[2017-09-25 22:51] VITALS: BP 112/58
[2017-09-26 06:53] VITALS: BP 120/56
--- NOTE | 2017-09-26 07:13 | PN- General Surgery ---
See Addendum Subjective Subjective: Patient reports crampy abdominal pain, controlled with Morphine. Tolerating ice chips without nausea or vomiting. Patient denies ambulating since surgery. Denies passing flatus or moving her bowels. She offers no other complaints. Objective Vital Signs and I&Os Vital Signs Date Time Temp Pulse Resp B/P B/P Pulse O2 O2 Flow FiO2 Mean Ox Delivery Rate 09/26 652 97.9 62 16 120/56 09/26 0000 Nasal 4.0L Cannula 09/25 2251 97.7 54 18 112/58 90 Nasal 3.0L Cannula 09/25 1600 90 Nasal 3.0L Cannula 09/25 1529 98.7 57 20 108/58 94 Nasal 6.0L Cannula 09/25 0835 54 110/60 09/25 08 94 Nasal 2.0L Cannula Intake & Output 09/26 0809/26 0000 09/25 1600 09/25 0809/25 0000 09/24 1600 Intake Total 910 416 966 0547 Output Total 200 650 200 Balance 710 200 -50 1000 Intake, IV 800 604 523 7921 Intake, Oral 110 50 Number 0 Bowel Movements Output, Urine 200 650 200 Patient 147 lb 135 lb 134 lb Weight Weight Bed scale Bed scale Reported by Patient Measurement Method Physical Exam: Gen - resting comfortably in nad, 4L O2 via nc Cardiac - irregular Lungs - fair inspiratory effort, crackles bases Abd - softly distended, dressings x2 c/d/i, faint bs, appropriately tender, no rebound or guarding noted Ext - alps in place, no significant edema or calf pain Current Medications: Current Medications Sig/Yesy Start time Last Medication Dose Route Stop Time Status Admin Acetaminophen 0 .STK-MED ONE 09/25 1344 DC IV Acetaminophen 1,000 MG Q6P PRN 09/25 0245 09/25 N/A 1 UNIT IV 1345 Albuterol Sulfate 2 PUF Q4-6 PRN PRN 09/25 0300 AC 09/25 INH 0841 Atenolol 50 MG DAILY 09/25 899 AC 09/25 PO 0835 Benzocaine/Menthol 1 FELIX Q2P PRN 09/25 1230 AC 09/25 PO 1345 Ceftriaxone Sodium 1,000 MG DAILY 09/25 899 AC 09/25 IV 0840 Dabigatran 150 MG BID 09/26 899 AC PO Dextrose/Sodium 1,000 ML CONTINOUS INFUSION 09/25 0300 DC Chloride IV Digoxin 0.125 MG DAILY 09/25 899 AC 09/25 PO 0835 Diltiazem HCl 120 MG DAILY 09/25 899 AC 09/25 PO 0835 Heparin Sodium 5,000 UNIT Q8 09/25 1400 DC 09/25 (Porcine) SC 09/25 2201 2131 Lorazepam 0.5 MG Q6-PRN PRN 09/25 0300 AC 09/25 IV 2330 Metronidazole 500 MG IQ8 09/25 08 AC 09/25 N/A 1 UNIT IV 2340 Morphine Sulfate 4 MG Q2-3 HRS NEEDED.. 09/25 0400 AC 09/26 IV 0321 Morphine Sulfate 2 MG Q2-3 HRS NEEDED.. 09/25 0245 AC 09/25 IV 1702 Ondansetron HCl 4 MG Q6P PRN 09/25 0245 AC 09/25 IV 0325 Pantoprazole Sodium 40 MG DAILY 09/25 899 AC 09/25 IV 0829 Patient Medication 1 ED ONE ONE 09/25 1230 DC 09/25 Teaching ED 09/25 1231 1353 Potassium Chloride 20 MEQ CONTINOUS INFUSION 09/25 1015 CAN IV Potassium Chloride 20 MEQ Q10H 09/25 1015 AC 09/25 Dextrose/Sodium 1,000 ML IV 2130 Chloride Potassium Chloride 20 MEQ ONCE ONE 09/25 1015 DC 09/25 PO 09/25 1016 1106 Results Last 48 Hours of Labs: Laboratory Tests 09/26 09/25 09/24 09/24 0608 0610 2352 2113 Chemistry Sodium (137 - 145 mmol/L) Pending 134 L Potassium (3.5 - 5.1 mmol/L) Pending 3.1 L Chloride (98 - 107 mmol/L) Pending 93 L Carbon Dioxide (22 - 30 mmol/L) Pending 31 H Anion Gap (5 - 16) Pending 10 BUN (7 - 17 mg/dL) Pending 23 H Creatinine (0.5 - 1.0 mg/dL) Pending 1.0 Estimated GFR (>60 ml/min) 53 L BUN/Creatinine Ratio (7 - 25 %) Pending 23.0 Lactic Acid (0.7 - 2.1 mmol/L) 1.7 1.6 Hematology CBC w Diff Pending MAN DIFF ORDERED WBC (4.8 - 10.8 /CUMM) Pending 12.0 H RBC (4.20 - 5.40 /CUMM) Pending 3.85 L Hgb (12.0 - 16.0 G/DL) Pending 13.0 Hct (37 - 47 %) Pending 38.7 MCV (81.0 - 99.0 FL) Pending 100.5 H MCH (27.0 - 31.0 PG) Pending 33.7 H MCHC (33.0 - 37.0 G/DL) Pending 33.6 RDW (11.5 - 14.5 %) Pending 14.7 H Plt Count (130 - 400 /CUMM) Pending 227 MPV (7.4 - 10.4 FL) Pending 9.3 Gran % (42.2 - 75.2 %) 82.7 H Lymphocytes % (20.5 - 51.1 %) 6.9 L Monocytes % (1.7 - 9.3 %) 10.2 H Eosinophils % (0 - 5 %) 0 Basophils % (0.0 - 2.0 %) 0.2 Absolute Granulocytes (1.4 - 6.5 /CUMM) 9.9 H Segmented Neutrophils (42.2 - 75.2 %) 73 Band Neutrophils (0.0 - 5.0 %) 13 H Absolute Lymphocytes (1.2 - 3.4 /CUMM) 0.8 L Lymphocytes (20.5 - 51.1 %) 4 L Monocytes (1.7 - 9.3 %) 10 H Absolute Monocytes (0.10 - 0.60 /CUMM) 1.2 H Absolute Eosinophils (0.0 - 0.7 /CUMM) 0 Absolute Basophils (0.0 - 0.2 /CUMM) 0 Platelet Estimate (ADEQUATE) ADEQUATE Normochromic RBCs VERIFIED Macrocytic Cells + 09/24 2113 Chemistry Sodium (137 - 145 mmol/L) 134 L Potassium (3.5 - 5.1 mmol/L) 3.6 Chloride (98 - 107 mmol/L) 88 L Carbon Dioxide (22 - 30 mmol/L) 35 H Anion Gap (5 - 16) 11 BUN (7 - 17 mg/dL) 25 H Creatinine (0.5 - 1.0 mg/dL) 1.1 H Estimated GFR (>60 ml/min) 48 L BUN/Creatinine Ratio (7 - 25 %) 22.7 Glucose (65 - 99 mg/dL) 127 H Calcium (8.4 - 10.2 mg/dL) 10.6 H Total Bilirubin (0.2 - 1.3 mg/dL) 1.2 AST (14 - 36 U/L) 48 H ALT (9 - 52 U/L) 56 H Alkaline Phosphatase (<127 U/L) 81 Total Protein (6.3 - 8.2 g/dL) 8.0 Albumin (3.5 - 5.0 g/dL) 4.3 Globulin (1.9 - 4.2 gm/dL) 3.7 Albumin/Globulin Ratio (1.1 - 2.2 %) 1.2 Coagulation PT (9.4 - 12.5 SEC) 16.6 H INR (0.90 - 1.19) 1.52 H APTT (25 - 37 SEC) 67 H Hematology CBC w Diff NO MAN DIFF REQ WBC (4.8 - 10.8 /CUMM) 14.4 H RBC (4.20 - 5.40 /CUMM) 4.42 Hgb (12.0 - 16.0 G/DL) 14.8 Hct (37 - 47 %) 43.9 MCV (81.0 - 99.0 FL) 99.5 H MCH (27.0 - 31.0 PG) 33.4 H MCHC (33.0 - 37.0 G/DL) 33.6 RDW (11.5 - 14.5 %) 14.6 H Plt Count (130 - 400 /CUMM) 298 MPV (7.4 - 10.4 FL) 8.2 Gran % (42.2 - 75.2 %) 78.4 H Lymphocytes % (20.5 - 51.1 %) 13.9 L Monocytes % (1.7 - 9.3 %) 7.5 Eosinophils % (0 - 5 %) 0 Basophils % (0.0 - 2.0 %) 0.2 Absolute Granulocytes (1.4 - 6.5 /CUMM) 11.3 H Absolute Lymphocytes (1.2 - 3.4 /CUMM) 2.0 Absolute Monocytes (0.10 - 0.60 /CUMM) 1.1 H Absolute Eosinophils (0.0 - 0.7 /CUMM) 0 Absolute Basophils (0.0 - 0.2 /CUMM) 0 Assessment/Plan Assessment/Plan 82 F POD 1 s/p laparotomy, sb rxn and right femoral hernia repair with mesh secondary to incarcerated right inguinal hernia with obstruction, awaiting return of bowel function Cont ice chips, IVF Pain regimen prn Cont IV abx - rocephin/flagyl Restart pradaxa Hold humeria x 2 weeks OOB ambulation TRC, encourage IS, wean O2 F/u labs Appreciate GI/cardiology involvement Will d/w Dr. Lewis Core Measures Venous Thromboembolism VTE Risk Factors Age>40 No Mechanical VTE Prophylaxis d/t N/A MechProphylax Ordered No VTE Pharm Prophylaxis d/t NA PharmProphylax ordered
[2017-09-26 07:53] LABS: ABSOLUTE BASOPHIL COUNT 0 /CUMM (0.0-0.2); ABSOLUTE EOSINOPHIL COUNT 0 /CUMM (0.0-0.7); ABSOLUTE GRANULOCYTE CT 11.3 /CUMM (1.4-6.5); ABSOLUTE MONOCYTE COUNT 1.5 /CUMM (0.10-0.60); BASOPHIL % 0 % (0.0-2.0); EOSINOPHIL % 0 % (0-5); HEMATOCRIT 33.9 % (37-47); MEAN CORPUSCULAR HGB 33.5 PG (27.0-31.0); MEAN CORPUSCULAR HGB CONC 33.2 G/DL (33.0-37.0); MEAN CORPUSCULAR VOLUME 100.7 FL (81.0-99.0); MEAN PLATELET VOLUME 8.7 FL (7.4-10.4); PLATELET COUNT 197 /CUMM (130-400); RBC DISTRIBUTION WIDTH 14.7 % (11.5-14.5); RED BLOOD CELL CT 3.37 /CUMM (4.20-5.40); WHITE BLOOD CELL COUNT 13.8 /CUMM (4.8-10.8)
[2017-09-26 14:44] VITALS: BP 122/64
[2017-09-26 21:32] VITALS: BP 160/70
[2017-09-27 06:02] VITALS: BP 140/60
--- NOTE | 2017-09-27 07:10 | PN- Student ---
Monserrat Cerda 09/27/17 0705: Subjective Subjective: Saw the patient this morning and she is doing ok, sleepy this morning. Overnight , she had some nausea on and off without any episodes of vomiting. Pt denies cp, sob. Pt still hasn't passed flatus/BM. She has been oob and is voiding on her own. Her incisional abdominal pain has been well controlled, rates it a 5/10 this morning. Pt does complain of some swelling in her LE. Objective Objective: Physical Exam Gen: O&Ax3, laying in bed comfortably, in no apparent distress Lung: CTA Heart: s1 and s2 heard. regular rate. irregular rhythm. Abd: hypoactive bs, mildly distended, incisional tenderness, no rigidity/ gaurding, soft. dressing intact- clear/dry/no/drainage LE: 2+ bilateral edema, alps in place, calfs nontender to palpation, skin is warm/dry Results Results: Vital Signs Date Time Temp Pulse Resp B/P B/P Pulse O2 O2 Flow FiO2 Mean Ox Delivery Rate 09/27 0602 97.5 58 20 140/60 93 Nasal Cannula 09/27 0000 Nasal 4.0L Cannula 09/26 2132 98.7 60 20 160/70 92 Nasal Cannula 09/26 1925 88 Nasal 3.0L Cannula 09/26 1444 97.7 60 20 122/64 92 Nasal 2.0L Cannula 09/26 0932 92 Nasal 3.0L Cannula 09/26 0930 Nasal 3.0L Cannula 09/26 0839 64 132/70 09/26 0839 64 132/70 09/26 0800 Nasal 3.0L Cannula 09/26 0653 97.9 62 16 120/56 08 0000 Nasal 4.0L Cannula 09/25 2251 97.7 54 18 112/58 90 Nasal 3.0L Cannula 09/25 1600 90 Nasal 3.0L Cannula 09/25 1529 98.7 57 20 108/58 94 Nasal 6.0L Cannula 09/25 0835 54 110/60 08 0800 94 Nasal 2.0L Cannula 09/25 0548 98.2 54 20 110/60 95 Nasal 6.0L Cannula 09/25 0448 Nasal 6.0L Cannula 09/24 2347 97.6 62 18 164/78 97 Room Air 09/25 2003 97.7 59 16 130/75 97 Room Air Laboratory Tests 09/27/17 0640: Sodium Pending, Potassium Pending, Chloride Pending, Carbon Dioxide Pending, Anion Gap Pending, BUN Pending, Creatinine Pending, BUN/Creatinine Ratio Pending , CBC w Diff Pending, WBC Pending, RBC Pending, Hgb Pending, Hct Pending, MCV Pending, MCH Pending, MCHC Pending, RDW Pending, Plt Count Pending, MPV Pending Orders Procedure Date/time Status CBC WITHOUT DIFFERENTIAL 09/27 599 Active BASIC ELECTROLYTES PLUS BUN&CR 09/27 599 Active MISSING MEDICATION FORM 09/27 0010 Active THERAPIST ORDERS 09/26 1925 Complete RT: Evaluation 09/26 929 Active CBC WITHOUT DIFFERENTIAL 09/26 599 Complete BASIC ELECTROLYTES PLUS BUN&CR 09/26 599 Complete TRC EVALUATION (GEN) 09/26 UNK Active THERAPIST ORDERS 09/26 UNK Complete OXYGEN SETUP (GEN) 09/26 UNK Complete Nothing by Mouth 09/25 B Active CBC WITHOUT DIFFERENTIAL 09/25 599 Complete BASIC ELECTROLYTES PLUS BUN&CR 09/25 599 Complete Pathway - chart 09/25 246 Active Patient Data 09/25 246 Active Code Status 09/25 024 Active PATHOLOGY SPECIMEN 09/25 0211 Complete Wound Care/Dressing 09/25 122 Active Weight 09/25 012 Active VTE Mechanical Prophylaxis 09/25 122 Active Vital Signs 09/25 122 Complete Turn and Reposition 09/25 122 Active Drains/Tubes 09/25 122 Complete Teach/Educate 09/25 122 Active Skin Integrity Protocol 09/25 122 Active Skin/Pressure Ulcer Assess (Sk 09/25 122 Active Precautions 09/25 122 Active Pain Treatment and Response 09/25 122 Active Nutritional Intake, Monitor 09/25 122 Active Isolation 09/25 122 Active CIWA 09/25 122 Complete Patient Care Conference 09/25 122 Active Activity/Ambulation 09/25 122 Complete EKG 09/25 12 Active Admit to inpatient 09/25 UNK Active VTE Mechanical Prophylaxis 09/25 UNK Complete Vital Signs 09/25 UNK Active Discontinue Nursing Interventi 09/25 UNK Active NGT 09/25 UNK Complete Intake & Output 09/25 UNK Active Activity/Ambulation 09/25 UNK Complete Activity/Ambulation 09/25 UNK Active LACTIC ACID 09/24 2354 Complete Admit to inpatient 09/24 2340 Active LACTIC ACID 09/24 2054 Complete PARTIAL THROMBOPLASTIN TIME 09/24 2052 Complete PROTHROMBIN TIME 09/24 2052 Complete COMPREHENSIVE METABOLIC PANEL 09/24 2052 Complete CBC WITHOUT DIFFERENTIAL 09/24 2052 Complete TYPE & SCREEN (NOT X-MATCH) 09/24 2052 Complete Laboratory Tests 09/27/17 0640: Sodium Pending, Potassium Pending, Chloride Pending, Carbon Dioxide Pending, Anion Gap Pending, BUN Pending, Creatinine Pending, BUN/Creatinine Ratio Pending , CBC w Diff Pending, WBC Pending, RBC Pending, Hgb Pending, Hct Pending, MCV Pending, MCH Pending, MCHC Pending, RDW Pending, Plt Count Pending, MPV Pending 09/26/17 0608: Anion Gap 7, Estimated GFR 36 L, BUN/Creatinine Ratio 24.3, CBC w Diff NO MAN DIFF REQ, RBC 3.37 L, MCV 100.7 H, MCH 33.5 H, MCHC 33.2, RDW 14.7 H, MPV 8.7, Gran % 82.0 H, Lymphocytes % 7.1 L, Monocytes % 10.9 H, Eosinophils % 0, Basophils % 0, Absolute Granulocytes 11.3 H, Absolute Lymphocytes 1.0 L, Absolute Monocytes 1.5 H, Absolute Eosinophils 0, Absolute Basophils 0 09/25/17 0610: Anion Gap 10, Estimated GFR 53 L, BUN/Creatinine Ratio 23.0, CBC w Diff MAN DIFF ORDERED, RBC 3.85 L, MCV 100.5 H, MCH 33.7 H, MCHC 33.6, RDW 14.7 H, MPV 9.3, Gran % 82.7 H, Lymphocytes % 6.9 L, Monocytes % 10.2 H, Eosinophils % 0, Basophils % 0.2, Absolute Granulocytes 9.9 H, Segmented Neutrophils 73, Band Neutrophils 13 H, Absolute Lymphocytes 0.8 L, Lymphocytes 4 L, Monocytes 10 H, Absolute Monocytes 1.2 H, Absolute Eosinophils 0, Absolute Basophils 0, Platelet Estimate ADEQUATE, Normochromic RBCs VERIFIED, Macrocytic Cells 1+ 09/24/172351: Lactic Acid 1.7 09/24/172112: Lactic Acid 1.6 09/24/172112: Anion Gap 11, Estimated GFR 48 L, BUN/Creatinine Ratio 22.7, Glucose 127 H, Calcium 10.6 H, Total Bilirubin 1.2, AST 48 H, ALT 56 H, Alkaline Phosphatase 81, Total Protein 8.0, Albumin 4.3, Globulin 3.7, Albumin/Globulin Ratio 1.2, PT 16.6 H, INR 1.52 H, APTT 67 H, CBC w Diff NO MAN DIFF REQ, RBC 4.42, MCV 99.5 H, MCH 33.4 H, MCHC 33.6, RDW 14.6 H, MPV 8.2, Gran % 78.4 H, Lymphocytes % 13.9 L, Monocytes % 7.5, Eosinophils % 0, Basophils % 0.2, Absolute Granulocytes 11.3 H, Absolute Lymphocytes 2.0, Absolute Monocytes 1.1 H, Absolute Eosinophils 0, Absolute Basophils 0 Assessment/Plan Assessment: This is an 82 femeale POD 2 s/p laparotomy, small bowel resection and right femoral hernia repair with mesh secondary to incarcerated right inguinal hernia with obstruction, stable, still awaiting bowel function return this morning. Plan: Advance diet to clears today as tolerated Pt is oob and voiding ok, no hodgson C/w IV fluids, awaiting return of bowel function C/w Rocephin/flagyl Pradaxa for dvt ppx Protonix for GI ppx Pain regimen prn Hold kenrick x 2 weeks Encourage pt oob, ambulation, IS Lasix resumed, monitor LE edema Wean o2 as tolerated AM labs still pending Farhana Coates 09/27/17 0911: Assessment/Plan Assessment: Agree with student assessment: Pt reporting pain and nausea overnight with no emesis. No hiccupping, occasional belching. Concern regarding dressing saturation still raised by patient. -dressing changed: rlq incision clean and dry, no drainage expressed, midline incision with small amount of serosanguinous drainage from mid incision. No surrounding erythema, skin edges well approximated, no purulence. -Abdominal exam: Softly distended, normal bowel sounds auscultated. Small amount of flatus passed during exam. Will proceed with multiview xray in the setting of continued distension but expectation is that patient had post op ileus that is resolving.
[2017-09-27 08:11] LABS: ABSOLUTE BASOPHIL COUNT 0 /CUMM (0.0-0.2); ABSOLUTE EOSINOPHIL COUNT 0 /CUMM (0.0-0.7); ABSOLUTE GRANULOCYTE CT 9.8 /CUMM (1.4-6.5); ABSOLUTE LYMPH COUNT 1.2 /CUMM (1.2-3.4); BASOPHIL % 0.2 % (0.0-2.0); EOSINOPHIL % 0 % (0-5); GRANULOCYTE % 81.1 % (42.2-75.2); HEMATOCRIT 33.6 % (37-47); MEAN CORPUSCULAR HGB 33.7 PG (27.0-31.0); MEAN CORPUSCULAR HGB CONC 33.3 G/DL (33.0-37.0); MEAN CORPUSCULAR VOLUME 100.9 FL (81.0-99.0); MEAN PLATELET VOLUME 9.2 FL (7.4-10.4); PLATELET COUNT 209 /CUMM (130-400); RBC DISTRIBUTION WIDTH 14.6 % (11.5-14.5); RED BLOOD CELL CT 3.33 /CUMM (4.20-5.40); WHITE BLOOD CELL COUNT 12.1 /CUMM (4.8-10.8)
--- NOTE | 2017-09-27 10:00 | RADIOLOGY REPORT ---
EXAMINATION: XR ABDOMEN MULTIPLE VIEWS CLINICAL INDICATION: Status post bowel resection, ileus. COMPARISON: CT scan of the abdomen and pelvis dated 09/24/2017 and plain film study dated 09/24/2017 TECHNIQUE: 2 views of the abdomen. FINDINGS: There is cardiomegaly. The lung bases are overall clear. A pacemaker is present. An NG tube is present with the tip projecting over the gastric fundus. Multiple surgical clips are present in the right upper quadrant. Midline surgical bethany are present in the lower abdomen and right pelvis. Multiple gas-filled dilated small bowel loops are present, measurement of corresponding small bowel diameters are decreased compared to the prior plain film study of 09/24/2017. No small bowel air-fluid levels are noted on the upright portion of the study. A small amount of gas is present in the distal colon/rectosigmoid region. IMPRESSION: 1. The findings are consistent with continued ileus, with generally decreased diameter of gas-filled small bowel loops compared to the prior plain film study, as well as increasing gas present in the distal colon suggestive of improvement of the ileus. 2. No evidence of free intraperitoneal gas is present at this time.
[2017-09-27 14:14] VITALS: BP 166/70
--- NOTE | 2017-09-27 19:02 | RADIOLOGY REPORT ---
EXAMINATION: XR ABDOMEN MULTIPLE VIEWS CLINICAL INDICATION: Postoperative ileus. Slow return of bowel function COMPARISON: CT scan 09/24/2017 TECHNIQUE: Gastrografin ingested at 2:00 PM. X-ray 4 hours later. Upright and supine views of the abdomen and pelvis were obtained. FINDINGS: Contrast is seen within distended loops of small and large bowel with contrast as far distally as the right colon. There is some residual contrast in the distal stomach. Coarse interstitial markings. Mild cardiomegaly. No pneumoperitoneum or pneumatosis. 2-lead pacemaker with contiguous intact leads projecting over the expected location of the right atrium and right ventricle. Skin bethany. IMPRESSION: Contrast is seen within distended loops of small and large bowel with contrast as far distally as the right colon. An ileus is possible but the prompt progression of contrast argues against a bowel obstruction.
[2017-09-27 22:09] VITALS: BP 158/70
[2017-09-28 06:50] VITALS: BP 144/68
--- NOTE | 2017-09-28 07:32 | PN- General Surgery ---
Alex Poe 09/28/17 0725: Subjective Subjective: Patient reports multiple bms overnight after receving gastrografin for axr, which revealed ileus. C.diff sent. She reports intermittent nausea and belching. She reports pain controlled with tylenol. She reports ambulating in her room. Objective Vital Signs and I&Os Vital Signs Date Time Temp Pulse Resp B/P B/P Pulse O2 O2 Flow FiO2 Mean Ox Delivery Rate 09/28 0650 97.5 66 20 144/68 95 Room Air 09/28 0000 Nasal 4.0L Cannula 09/27 2209 97.5 72 20 158/70 92 Nasal Cannula 09/27 2054 90 Nasal 3.0L Cannula 09/27 1600 96 Nasal 4.0L Cannula 09/27 1414 98.1 68 20 166/70 96 Nasal Cannula 09/27 0826 70 140/70 09/27 0826 70 140/70 09/27 0805 94 Nasal 3.0L Cannula 09/27 08 93 Nasal 4.0L Cannula Intake & Output 09/28 0800 / 0000 09/27 1600 09/27 0800 09/27 0000 09/26 1600 Intake Total 800 520 200 078 108 9999 Output Total Balance 800 520 200 868 037 1312 Intake, IV 800 400 900 800 800 Intake, Oral 120 200 560 Number 6 1 0 Bowel Movements Output, Urine Patient 141 lb 149 lb 149 lb Weight Weight Bed scale Measurement Method Physical Exam: Gen - nad, 2L O2 via nc Cardiac - irregular Lungs - fair inspiratory effort, crackles bases Abd - softly distended, dressings x2 c/d/i, incisions closed with bethany, healing well with no signs of infection, redressed with guaze and tape, bs present, appropriately tender, no rebound or guarding noted Ext - alps in place, no significant edema or calf pain Current Medications: Current Medications Sig/Yesy Start time Last Medication Dose Route Stop Time Status Admin Acetaminophen 650 MG Q4P PRN 09/27 2330 AC 09/28 PO 0001 Acetaminophen 1,000 MG Q6P PRN 09/25 0245 DC 09/27 N/A 1 UNIT IV 1547 Albuterol Sulfate 3 ML BID 09/26 2100 AC 09/27 INH 205 Albuterol Sulfate 2 PUF Q4-6 PRN PRN 09/25 0300 AC 09/25 INH 0841 Atenolol 50 MG DAILY 09/25 899 AC 09/27 PO 0826 Benzocaine/Menthol 1 FELIX Q2P PRN 09/25 1230 AC 09/25 PO 1345 Ceftriaxone Sodium 1,000 MG DAILY 09/25 899 AC 09/27 IV 0824 Dabigatran 150 MG BID 09/26 899 AC 09/27 PO 2125 Digoxin 0.125 MG DAILY 09/25 899 AC 09/27 PO 08 Diltiazem HCl 120 MG DAILY 09/25 899 AC 09/27 PO 0824 Docusate Sodium 100 MG DAILY 09/26 0934 AC 09/27 PO 0825 Escitalopram Oxalate 10 MG DAILY 09/26 2330 AC 09/27 PO 0826 Furosemide 40 MG DAILY 09/26 1101 AC 09/27 PO 0826 Lorazepam 0 .STK-MED ONE 09/27 2358 DC PO Lorazepam 0.5 MG Q6-PRN PRN 09/25 0300 AC 09/28 IV 0001 Metoclopramide HCl 10 MG ONCE ONE 09/27 1015 DC 09/27 IV 09/27 1016 1042 Metronidazole 500 MG IQ8 09/25 08 AC 09/28 N/A 1 UNIT IV 0001 Morphine Sulfate 4 MG Q2-3 HRS NEEDED.. 09/25 0400 AC 09/26 IV 0321 Morphine Sulfate 2 MG Q2-3 HRS NEEDED.. 09/25 0245 AC 09/27 IV 1146 Ondansetron HCl 4 MG Q6P PRN 09/25 0245 AC 09/25 IV 0325 Pantoprazole Sodium 40 MG DAILY 09/25 899 AC 09/27 IV 0824 Potassium Chloride 10 MEQ Q1H 09/27 0930 DC 09/27 IV 09/27 1031 1139 Potassium Chloride 20 MEQ Q10H 09/25 1015 AC 09/28 Dextrose/Sodium 1,000 ML IV 0623 Chloride Results Last 48 Hours of Labs: Laboratory Tests 09/28 09/27 0609 0640 Chemistry Sodium (137 - 145 mmol/L) Pending 136 L Potassium (3.5 - 5.1 mmol/L) Pending 3.4 L Chloride (98 - 107 mmol/L) Pending 103 Carbon Dioxide (22 - 30 mmol/L) Pending 25 Anion Gap (5 - 16) Pending 7 BUN (7 - 17 mg/dL) Pending 32 H Creatinine (0.5 - 1.0 mg/dL) Pending 1.0 Estimated GFR (>60 ml/min) 53 L BUN/Creatinine Ratio (7 - 25 %) Pending 32.0 H Magnesium Pending Hematology CBC w Diff Pending NO MAN DIFF REQ WBC (4.8 - 10.8 /CUMM) Pending 12.1 H RBC (4.20 - 5.40 /CUMM) Pending 3.33 L Hgb (12.0 - 16.0 G/DL) Pending 11.2 L Hct (37 - 47 %) Pending 33.6 L MCV (81.0 - 99.0 FL) Pending 100.9 H MCH (27.0 - 31.0 PG) Pending 33.7 H MCHC (33.0 - 37.0 G/DL) Pending 33.3 RDW (11.5 - 14.5 %) Pending 14.6 H Plt Count (130 - 400 /CUMM) Pending 209 MPV (7.4 - 10.4 FL) Pending 9.2 Gran % (42.2 - 75.2 %) 81.1 H Lymphocytes % (20.5 - 51.1 %) 10.1 L Monocytes % (1.7 - 9.3 %) 8.6 Eosinophils % (0 - 5 %) 0 Basophils % (0.0 - 2.0 %) 0.2 Absolute Granulocytes (1.4 - 6.5 /CUMM) 9.8 H Absolute Lymphocytes (1.2 - 3.4 /CUMM) 1.2 Absolute Monocytes (0.10 - 0.60 /CUMM) 1.0 H Absolute Eosinophils (0.0 - 0.7 /CUMM) 0 Absolute Basophils (0.0 - 0.2 /CUMM) 0 Assessment/Plan Assessment/Plan 82 F POD 3 s/p laparotomy, sb rxn and right femoral hernia repair with mesh secondary to incarcerated right inguinal hernia with obstruction, with return of bowel function, improved abdominal distention and nausea Trial clear liquid diet Pain regimen prn Cont IV abx due to bile spillage/necrotic hernia sac- rocephin/flagyl Replete K for hypokalemia GI ppx on board DVT ppx - alps, pradaxa Hold humeria x 2 weeks OOB ambulation TRC, encourage IS, wean O2 Appreciate GI/cardiology involvement D/w Dr. Lewis Core Measures Venous Thromboembolism VTE Risk Factors Age>40 No Mechanical VTE Prophylaxis d/t N/A MechProphylax Ordered No VTE Pharm Prophylaxis d/t NA PharmProphylax ordered Joshua Jorje SANDHU 09/28/17 0908: Attending MD Review Statement Attending Statement Attending MD Statement: examined this patient, discuss w/resident/PA/CHALKER SOLES, agreed w/resident/PA/CHALKER SOLES, discussed w/nursing, reviewed images Attending Assessment/Plan: Patient seen and examined, agree with above. Doing ok, + BMs (multiple and liquid), mild nausea, pain ok. AVSS UO ok. Abd-softly distended (decreased from yesterday), dressings C/D/I, mild pain. Labs pending. AXR from yesterday ileus, contrast throughout small and large bowel. Clear liquid diet, OOB, IVF, appears to be improving, diarrhea likely just from the gastrograffin, cont IV Abx d/t some bile spillage during the case and a necrotic hernia sac.
[2017-09-28 08:14] LABS: ABSOLUTE BASOPHIL COUNT 0 /CUMM (0.0-0.2); ABSOLUTE EOSINOPHIL COUNT 0 /CUMM (0.0-0.7); ABSOLUTE GRANULOCYTE CT 10.6 /CUMM (1.4-6.5); ABSOLUTE LYMPH COUNT 1.3 /CUMM (1.2-3.4); BASOPHIL % 0.1 % (0.0-2.0); EOSINOPHIL % 0.1 % (0-5); GRANULOCYTE % 82.2 % (42.2-75.2); HEMATOCRIT 34.3 % (37-47); MEAN CORPUSCULAR HGB 33.6 PG (27.0-31.0); MEAN CORPUSCULAR HGB CONC 33.4 G/DL (33.0-37.0); MEAN CORPUSCULAR VOLUME 100.6 FL (81.0-99.0); MEAN PLATELET VOLUME 9.1 FL (7.4-10.4); PLATELET COUNT 226 /CUMM (130-400); RBC DISTRIBUTION WIDTH 14.9 % (11.5-14.5); RED BLOOD CELL CT 3.41 /CUMM (4.20-5.40); WHITE BLOOD CELL COUNT 12.9 /CUMM (4.8-10.8)
--- NOTE | 2017-09-28 10:05 | Patient Discharge Instructions ---
Discharge Instructions General Discharge Information You were seen/treated for: Incarcerated incisional hernia You had these procedures: Open right femoral hernia repair with mesh, laparotomy, open small bowel resection Watch for these problems: Worsening abdominal pain, nausea, vomiting, redness, swelling or drainage from incisions Call Surgeon to remove: Bruno No bath, but you may shower: Yes Other wound care: Keep incisions clean and dry Special Instructions: You may resume Humria 10/10/17 Diet Continue normal diet: Yes Activity Full Activity/No Limits: No Activity Self Limited: Yes Pounds, do NOT lift more than: 10 Other activity limits: No heavy lifting or strenous activity until follow up appointment Acute Coronary Syndrome Inclusion Criteria At DC or during hospital stay patient has or had the following: ACS DIAGNOSIS No Discharge Core Measures Meds if any: Prescribed or Continued at Discharge Meds if any: NOT Prescribed or Continued at Discharge Congestive Heart Failure Inclusion Criteria At DC or during hospital stay patient has or had the following: CHF DIAGNOSIS No Discharge Core Measures Meds if any: Prescribed or Continued at Discharge Meds if any: NOT Prescribed or Continued at Discharge Cerebrovascular accident Inclusion Criteria At DC or during hospital stay patient has or had the following: CVA/TIA Diagnosis No Discharge Core Measures Meds if any: Prescribed or Continued at Discharge Meds if any: NOT Prescribed or Continued at Discharge Venous thromboembolism Inclusion Criteria VTE Diagnosis No VTE Type NONE VTE Confirmed by (Test) NONE Discharge Core Measures - Per Current guidelines, there needs to be overlap - treatment for the first 5 days of Warfarin therapy. - If discharged on Warfarin prior to 5 days of - overlap therapy, the patient will need to be - assessed for post discharge needs including - *Post discharge parental anticoagulation - *Warfarin and/or parental anticoagulation education - *Follow up date to check INR post discharge At least 5 days overlap therapy as Inpatient No Meds if any: Prescribed or Continued at Discharge Note: Overlap Therapy is Warfarin and Anticoagulant Meds if any: NOT Prescribed or Continued at Discharge
--- NOTE | 2017-09-28 10:24 | Discharge Summary ---
Visit Information Visit Dates Admission Date: 09/25/17 Discharge Date: 10/05/17 Hospital Course Course Attending Physician: Jorje Lewis DO Primary Care Physician: Monserrat Montes Consulting Request: Consulting Specialty: Cardiology (Dr. Son Burnham) Hospital Course: Patient presented to the ER with a 1 day history of abdominal pain, nausea, vomiting and a nonreducible femoral hernia on exam. CT scan revealed SBO with transition point in the groin hernia containing bowel. She was admitted to Dr. Lewis's service and underwent an emergent open right femoral hernia repair with mesh, laparotomy, open small bowel resection on 09/25/17. Refer to operative report. She was evaluated by Cardiology for anticoagulation management. Her remedial masseur, Dr. Marti was also contacted regarding her Crohns management and recommended holding her humria for 2 weeks postop. Her hospital course was complicated by partial SBO due to right inguinal hernia. On CT scan, contrast was seen progressing through the small bowel and within the cecum. Diet was slowly advanced and tolerated. Outpatient elective surgery to repair her right inguinal hernia was recommended 4-6 weeks after her original surgery. At time of hospital discharge, vital signs were stable, bowel function returned and pain was controlled with the use of oral pain medications. Complications: Partial SBO due to right inguinal hernia Allergies: Coded Allergies: penicillamine (PER PT BREAKS OUT IN RASH ON HANDS 04/27/15) Significant Procedures: Open right femoral hernia repair with mesh, laparotomy, open small bowel resection on 09/25/17 Disposition Summary Disposition Principal Diagnosis: Incarcerated right femoral hernia with obstruction Additional Diagnosis: Partial sbo due to right inguinal hernia Discharge Disposition: home health services Discharge Instructions General Discharge Information Code Status: Full Code Patient's Diet: Reg Patient's Activity: Ambulate, no heavy lifting Follow-Up Instructions/Appts: 1-2 weeks Medications at Discharge Discharge Medications: Stop taking the following medications: Tramadol HCl (Tramadol HCl) 50 MG TABLET ORAL DAILY as needed for PAIN Adalimumab (Humira Pen) 40 MG/0.8 ML [id number] Continue taking these medications: Atenolol (Atenolol) 50 MG TABLET 50 Milligram ORAL TWICE DAILY Comments: given 10/05/17 @ 0820 Lisinopril (Lisinopril) 20 MG TABLET 1 Tablet ORAL DAILY Comments: GIVEN 10/05/17 @ 0820 Escitalopram Oxalate (Escitalopram Oxalate) 10 MG TABLET 1 Tablet ORAL DAILY Comments: GIVEN 10/05/17 @ 08 Furosemide (Furosemide) 40 MG TABLET 1 Tablet ORAL DAILY Comments: GIVEN 10/05/17 @ 819 Potassium Chloride (Klor-Con M10) 10 MEQ TAB.ER.PRT 1 Tablet ORAL DAILY Comments: GIVEN 10/05/17 @ 0820 Lorazepam (Ativan) 0.5 MG TABLET 1 Tablet ORAL DAILY NEEDED as needed for ANXIETY Comments: GIVEN 10/05/17 @ 0820 Acetaminophen (Tylenol Extra Strength) 500 MG TABLET 1 Tablet ORAL DAILY as needed for PAIN Comments: given 10/05/17 @ 1615 Multivit-Min/FA/Lycopen/Lutein (Centrum Silver Tablet) 0.4 MG-300 MCG-250 MCG TABLET 1 Tablet ORAL DAILY Comments: NOT GIVEN Vit A,C & E/Lutein/Minerals (Ocuvite With Lutein Tablet) 1,000-60-2 TABLET 1 Tablet ORAL DAILY Comments: NOT GIVEN Pravastatin Sodium (Pravastatin Sodium) 40 MG TABLET 1 Tablet ORAL Every night Comments: NOT GIVEN Ferrous Sulfate (Ferrous Sulfate) 325 MG (65 MG IRON) TABLET 1 Tablet ORAL THREE TIMES DAILY Comments: NOT GIVEN Loperamide HCl (Loperamide) 2 MG CAPSULE 1 Capsule ORAL DAILY as needed for DIARRHEA Comments: GIVEN 10/05/17 @ 0820 Albuterol Sulfate (Ventolin Hfa) 90 MCG HFA.AER.AD 2 Puff Inhale through mouth EVERY 4-6 HOURS NEEDED as needed for cough/ wheeze Qty = 1 Comments: given 10/04/17 @ 8:45 pm Dabigatran Etexilate Mesylate (Pradaxa 150 MG) 150 MG CAPSULE 150 Milligram ORAL TWICE DAILY Comments: GIVEN 10/05/17 @ 0820 Digoxin (Digoxin) 125 MCG TABLET 125 Microgram ORAL DAILY Comments: GIVEN 10/05/17 @ 0820 Diltiazem HCl (Diltiazem 24HR ER) 120 MG CAP.ER.24H 120 Milligram ORAL DAILY Comments: GIVEN 10/05/17 @ 0820 Start taking the following new medications: Cephalexin (Keflex) 500 MG CAPSULE 1 Capsule ORAL TWICE DAILY Qty = 10 No Refills Comments: GIVEN 10/05/17 @0820 Loperamide HCl (Imodium A-D) 2 MG CAPSULE 1 Capsule ORAL TWICE DAILY as needed for DIARRHEA Qty = 20 No Refills Instructions: USE ONLY NEEDED FOR DIARRHEA, DISCONTINUE IF CONSTIPATION DEVELOPS Comments: GIVEN 10/05/17 @ 6422 Copies To: Nayely RENO,Monserrat RENO,Monserrat Cota
--- NOTE | 2017-09-28 11:38 | PN- Cardiology ---
Subjective Subjective: Patient seen at bedside. Patient denies lightheadedness/dizziness, chest pain, palpitations, dyspnea. Patient has been having some frequent bowel movements. Reports pain is well controlled with Tylenol. Objective Vital Signs and I&Os Vital Signs Date Time Temp Pulse Resp B/P B/P Pulse O2 O2 Flow FiO2 Mean Ox Delivery Rate 09/28 1103 96 Nasal 3.0L Cannula 09/28 1027 66 182/70 09/28 0833 97 200/76 09/28 0833 97 200/76 09/28 0650 97.5 66 20 144/68 95 Room Air 09/28 0000 Nasal 4.0L Cannula 09/27 2209 97.5 72 20 158/70 92 Nasal Cannula 09/27 2054 90 Nasal 3.0L Cannula 09/27 1600 96 Nasal 4.0L Cannula 09/27 1414 98.1 68 20 166/70 96 Nasal Cannula Intake & Output 09/28 1600 09/28 0800 / 0000 09/27 1600 09/27 0800 09/27 0000 Intake Total 800 520 200 900 800 Output Total Balance 800 520 200 900 800 Intake, IV 800 400 900 800 Intake, Oral 120 200 Number 6 1 Bowel Movements Output, Urine Patient 64.042 kg 67.585 kg 67.585 kg Weight Weight Bed scale Measurement Method Physical Exam: General: no apparent distress, elderly lady lying in bed HEENT: NCAT, NO JVD Heart: s1s2, irregular rhythm, bradycardic, no MRG Lungs: CTA b/l Abd: soft, surgical dressings in place with no signs of bleeding, swelling, erythema Ext: Bilateral lower extremity swelling right more than left, mild pitting edema on the right, lower extremity's are warm, no erythema/skin breakdown Current Medications: Current Medications Sig/Yesy Start time Last Medication Dose Route Stop Time Status Admin Acetaminophen 650 MG Q4P PRN 09/27 2330 AC 09/28 PO 0831 Acetaminophen 1,000 MG Q6P PRN 09/25 0245 DC 09/27 N/A 1 UNIT IV 1547 Albuterol Sulfate 3 ML BID 09/26 2099 AC 09/28 INH 1101 Albuterol Sulfate 2 PUF Q4-6 PRN PRN 09/25 0300 AC 09/25 INH 0841 Atenolol 50 MG BID 09/28 2099 AC PO Atenolol 50 MG DAILY 09/25 899 DC 09/28 PO 0833 Benzocaine/Menthol 1 FELIX Q2P PRN 09/25 1230 AC 09/25 PO 1345 Ceftriaxone Sodium 1,000 MG DAILY 09/25 899 AC 09/28 IV 0830 Dabigatran 150 MG BID 09/26 899 AC 09/28 PO 0831 Digoxin 0.125 MG DAILY 09/25 899 AC 09/28 PO 0833 Diltiazem HCl 120 MG DAILY 09/25 899 AC 09/28 PO 0833 Docusate Sodium 100 MG DAILY 09/26 0934 AC 09/27 PO 0825 Escitalopram Oxalate 10 MG DAILY 09/26 2330 AC 09/28 PO 0831 Furosemide 40 MG DAILY 09/26 1101 AC 09/28 PO 0831 Lisinopril 20 MG DAILY 09/28 918 AC 09/28 PO 1027 Lorazepam 0 .STK-MED ONE 09/27 2358 DC PO Lorazepam 0.5 MG Q6-PRN PRN 09/25 0300 AC 09/28 IV 0001 Metronidazole 500 MG IQ8 09/26 799 AC 09/28 N/A 1 UNIT IV 0830 Morphine Sulfate 4 MG Q2-3 HRS NEEDED.. 09/25 0400 AC 09/26 IV 0321 Morphine Sulfate 2 MG Q2-3 HRS NEEDED.. 09/25 0245 AC 09/27 IV 1146 Ondansetron HCl 4 MG Q6P PRN 09/25 0245 AC 09/25 IV 0325 Pantoprazole Sodium 40 MG DAILY 09/25 899 AC 09/28 IV 0830 Potassium Chloride 20 MEQ BID 09/28 0916 AC 09/28 PO 1027 Potassium Chloride 20 MEQ Q10H 09/25 1015 AC 09/28 Dextrose/Sodium 1,000 ML IV 0833 Chloride Results Last 48 Hrs of Labs/Mics: Laboratory Tests 09/28/17 0609: Anion Gap 9, Estimated GFR > 60, BUN/Creatinine Ratio 27.1 H, Magnesium 1.7, CBC w Diff NO MAN DIFF REQ, RBC 3.41 L, MCV 100.6 H, MCH 33.6 H, MCHC 33.4, RDW 14.9 H, MPV 9.1, Gran % 82.2 H, Lymphocytes % 10.2 L, Monocytes % 7.4, Eosinophils % 0.1, Basophils % 0.1, Absolute Granulocytes 10.6 H, Absolute Lymphocytes 1.3, Absolute Monocytes 1.0 H, Absolute Eosinophils 0, Absolute Basophils 0 09/27/17 0640: Anion Gap 7, Estimated GFR 53 L, BUN/Creatinine Ratio 32.0 H, CBC w Diff NO MAN DIFF REQ, RBC 3.33 L, MCV 100.9 H, MCH 33.7 H, MCHC 33.3, RDW 14.6 H, MPV 9.2, Gran % 81.1 H, Lymphocytes % 10.1 L, Monocytes % 8.6, Eosinophils % 0 , Basophils % 0.2, Absolute Granulocytes 9.8 H, Absolute Lymphocytes 1.2, Absolute Monocytes 1.0 H, Absolute Eosinophils 0, Absolute Basophils 0 Recent Imaging Studies: Telemetry personally reviewed: Predominantly atrial fibrillation with no RVR, occasionally ventricularly paced Assessment/Plan Assessment/Plan 1. Chronic atrial fibrillation on Pradaxa 2. HFpEF 3. Hypertension - BP elevated today 4. Hyperlipidemia 5. Status post laparoscopic to open repair of incarcerated small bowel hernia with small bowel resection The patient is not currently in RVR. Pacing appropriately. [id number] is at least 5. Continue with pradaxa. Blood pressure is significantly elevated today. Patient does not appear to be in significant pain. Would continue with atenolol, lisinopril. Can increase diltiazem to 180mg daily. Trend BP. If blood pressure remains significantly elevated, diltiazem can further be increased to 240 mg, and can switch atenolol to labetalol. Right lower extremity is slightly more swollen than left, however patient is already on full dose anticoagulation with Pradaxa, making DVT unlikely. Continue telemetry? Yes
[2017-09-28 14:40] VITALS: BP 136/62
[2017-09-28 22:52] VITALS: BP 152/64
[2017-09-29 06:36] VITALS: BP 124/18; BP 124/68
--- NOTE | 2017-09-29 07:40 | PN- Orthopedic ---
Subjective Subjective: POD #4 s/p exploratory laparotomy/sb resection/repair of incarcerated right femoral hernia. Remains on clear liquids for a post operative ileus, although having BMs and passing flatus. No nausea or vomiting. Denies CP/SOB, F/C. Ambulating with assistance. Voiding spontaneously. Objective Vital Signs and I&Os Vital Signs Date Time Temp Pulse Resp B/P B/P Pulse O2 O2 Flow FiO2 Mean Ox Delivery Rate 09/29 0636 98.3 73 18 124/68 95 Nasal Cannula 09/29 0000 Nasal 4.0L Cannula 09/28 2252 98.8 62 18 152/64 98 Nasal Cannula 09/28 2038 80 136/62 09/28 1919 93 Nasal 3.0L Cannula 09/28 1600 Nasal 4.0L Cannula 09/28 1440 98.2 80 20 136/62 96 Nasal 4.0L Cannula 09/28 1103 96 Nasal 3.0L Cannula 09/28 1027 66 182/70 09/28 0833 97 200/76 09/28 0833 97 200/76 Intake & Output 09/29 0809/29 0000 09/28 1600 09/28 0800 09/28 0000 09/27 1600 Intake Total 800 400 820 800 520 200 Output Total 400 Balance 800 400 420 800 520 200 Intake, IV 600 100 800 400 Intake, Oral 200 400 720 120 200 Number 2 1 6 1 Bowel Movements Output, Urine 400 Patient 138 lb 141 lb 149 lb Weight Weight Bed scale Measurement Method Physical Exam: Gen: AAOx3 in NAD Cor: S1+S2+ Lungs: audibly wheezing. Crackles at bases [place]orgie. Abd: soft, NT, ND, +BS x4 Ext: `1+ edema to georgie lower extremities Current Medications: Current Medications Sig/Yesy Start time Last Medication Dose Route Stop Time Status Admin Acetaminophen 650 MG Q4P PRN 09/27 2330 AC 09/29 PO 0008 Albuterol Sulfate 3 ML BID 09/26 2099 AC 09/28 INH 191 Albuterol Sulfate 2 PUF Q4-6 PRN PRN 09/25 0300 AC 09/25 INH 0841 Atenolol 50 MG BID 09/28 2099 AC 09/28 PO 2038 Atenolol 50 MG DAILY 09/25 0900 DC 09/28 PO 0833 Benzocaine/Menthol 1 FELIX Q2P PRN 09/25 1230 AC 09/25 PO 1345 Ceftriaxone Sodium 1,000 MG DAILY 09/25 899 AC 09/28 IV 0830 Dabigatran 150 MG BID 09/26 899 AC 09/28 PO 2038 Digoxin 0.125 MG DAILY 09/25 899 AC 09/28 PO 0833 Diltiazem HCl 180 MG DAILY 09/29 899 AC PO Diltiazem HCl 120 MG DAILY 09/25 899 DC 09/28 PO 0833 Docusate Sodium 100 MG DAILY 09/26 0834 AC 09/27 PO 0825 Escitalopram Oxalate 10 MG DAILY 09/26 2330 AC 09/28 PO 0831 Furosemide 40 MG DAILY 09/26 1101 AC 09/28 PO 0831 Lisinopril 20 MG DAILY 09/28 918 AC 09/28 PO 1027 Lorazepam 0 .STK-MED ONE 09/29 0002 DC .ROUTE Lorazepam 0.5 MG Q6-PRN PRN 09/25 0300 AC 09/29 IV 0008 Metoclopramide HCl 0 .STK-MED ONE 09/28 1709 DC .ROUTE Metoclopramide HCl 10 MG ONCE ONE 09/28 1645 DC 09/28 IV 09/28 1646 1711 Metronidazole 500 MG IQ8 09/26 799 AC 09/28 N/A 1 UNIT IV 2354 Morphine Sulfate 4 MG Q2-3 HRS NEEDED.. 09/25 0400 DC 09/26 IV 0321 Morphine Sulfate 2 MG Q2-3 HRS NEEDED.. 09/25 0245 DC 09/27 IV 1146 Ondansetron HCl 4 MG Q6P PRN 09/25 0245 AC 09/25 IV 0325 Oxycodone HCl 2.5 MG Q6P PRN 09/29 07 UNVr PO Oxycodone HCl 5 MG Q6-PRN PRN 09/29 07 UNVr PO Pantoprazole Sodium 40 MG DAILY 09/25 899 DC 09/28 IV 0830 Potassium Chloride 20 MEQ CONTINOUS INFUSION 09/29 714 UNVr IV Potassium Chloride 20 MEQ .[id number] 09/28 1645 DC 09/28 Dextrose/Sodium 1,000 ML IV 2017 Chloride Potassium Chloride 20 MEQ BID 09/28 0816 AC 09/28 PO 2038 Potassium Chloride 20 MEQ Q10H 09/25 1015 DC 09/28 Dextrose/Sodium 1,000 ML IV 0833 Chloride Results Last 48 Hours of Labs: Laboratory Tests 09/29 08 0609 0609 Chemistry Sodium (137 - 145 mmol/L) Pending 138 Potassium (3.5 - 5.1 mmol/L) Pending 3.1 L Chloride (98 - 107 mmol/L) Pending 106 Carbon Dioxide (22 - 30 mmol/L) Pending 24 Anion Gap (5 - 16) Pending 9 BUN (7 - 17 mg/dL) Pending 19 H Creatinine (0.5 - 1.0 mg/dL) Pending 0.7 Estimated GFR (>60 ml/min) > 60 BUN/Creatinine Ratio (7 - 25 %) Pending 27.1 H Magnesium (1.6 - 2.3 mg/dL) 1.7 Hematology CBC w Diff Pending NO MAN DIFF REQ WBC (4.8 - 10.8 /CUMM) Pending 12.9 H RBC (4.20 - 5.40 /CUMM) Pending 3.41 L Hgb (12.0 - 16.0 G/DL) Pending 11.4 L Hct (37 - 47 %) Pending 34.3 L MCV (81.0 - 99.0 FL) Pending 100.6 H MCH (27.0 - 31.0 PG) Pending 33.6 H MCHC (33.0 - 37.0 G/DL) Pending 33.4 RDW (11.5 - 14.5 %) Pending 14.9 H Plt Count (130 - 400 /CUMM) Pending 226 MPV (7.4 - 10.4 FL) Pending 9.1 Gran % (42.2 - 75.2 %) 82.2 H Lymphocytes % (20.5 - 51.1 %) 10.2 L Monocytes % (1.7 - 9.3 %) 7.4 Eosinophils % (0 - 5 %) 0.1 Basophils % (0.0 - 2.0 %) 0.1 Absolute Granulocytes (1.4 - 6.5 /CUMM) 10.6 H Absolute Lymphocytes (1.2 - 3.4 /CUMM) 1.3 Absolute Monocytes (0.10 - 0.60 /CUMM) 1.0 H Absolute Eosinophils (0.0 - 0.7 /CUMM) 0 Absolute Basophils (0.0 - 0.2 /CUMM) 0 Assessment/Plan Assessment/Plan A: POD #4 s/p ex lap/sbr/repair of incarcerated right femoral hernia with mesh; avss. Post op ileus although having BMs/flatus. ?volume overload. Plan: CXR PA and lat. May need Lasix. F/U labwork. Decrease IVF to 50/hr OOB and ambulate as tolerated. Continue clear liquids at patient still distended/tympanitic. Abx to continue for necrotic mesh. Signed out to covering floor PA who will speak with DR. Queen. Core Measures Venous Thromboembolism VTE Risk Factors Age>40 No Mechanical VTE Prophylaxis d/t N/A MechProphylax Ordered No VTE Pharm Prophylaxis d/t NA PharmProphylax ordered
[2017-09-29 07:42] LABS: ABSOLUTE BASOPHIL COUNT 0 /CUMM (0.0-0.2); ABSOLUTE EOSINOPHIL COUNT 0.2 /CUMM (0.0-0.7); ABSOLUTE GRANULOCYTE CT 7.9 /CUMM (1.4-6.5); ABSOLUTE MONOCYTE COUNT 1.5 /CUMM (0.10-0.60); BASOPHIL % 0.3 % (0.0-2.0); EOSINOPHIL % 1.4 % (0-5); GRANULOCYTE % 68.7 % (42.2-75.2); HEMATOCRIT 33.2 % (37-47); MEAN CORPUSCULAR HGB 33.8 PG (27.0-31.0); MEAN CORPUSCULAR HGB CONC 33.5 G/DL (33.0-37.0); MEAN CORPUSCULAR VOLUME 100.9 FL (81.0-99.0); MEAN PLATELET VOLUME 8.7 FL (7.4-10.4); PLATELET COUNT 231 /CUMM (130-400); RBC DISTRIBUTION WIDTH 14.4 % (11.5-14.5); RED BLOOD CELL CT 3.29 /CUMM (4.20-5.40); WHITE BLOOD CELL COUNT 11.6 /CUMM (4.8-10.8)
--- NOTE | 2017-09-29 08:24 | RADIOLOGY REPORT ---
EXAMINATION: XR CHEST CLINICAL INFORMATION: O2 requirements. Crackles lower lung arboleda. COMPARISON: Chest x-ray dated 08/13/2017. TECHNIQUE: 2 views of the chest were obtained. FINDINGS: A right atrial and right ventricular pacer lead are seen in place, unchanged. The cardiomediastinal silhouette is borderline enlarged. Calcification and tortuosity of the aorta is seen. Lungs bilaterally are symmetrically hyperexpanded and demonstrate diffuse increase in reticular opacities, consistent with mild pulmonary edema. Small bilateral pleural effusions are noted. No dense consolidation is seen. No pneumothorax is noted. There is a S-shaped thoracolumbar scoliosis and a dorsal kyphosis with moderate degenerative changes in the lower thoracic spine. IMPRESSION: Interval development of pulmonary edema with small bilateral pleural effusions. Findings are superimposed upon obstructive lung disease.
--- NOTE | 2017-09-29 11:52 | PN- Cardiology ---
Subjective Subjective: Resting comfortably without chest pain, dyspnea, or palpitations. Objective Vital Signs and I&Os Vital Signs Date Time Temp Pulse Resp B/P B/P Pulse O2 O2 Flow FiO2 Mean Ox Delivery Rate 09/29 1037 90 Room Air Room Air 09/29 0816 73 148/60 09/29 0815 73 148/60 09/29 0815 73 148/60 09/29 0636 98.3 73 18 124/68 95 Nasal Cannula 09/29 0000 Nasal 4.0L Cannula 09/28 2252 98.8 62 18 152/64 98 Nasal Cannula 09/28 2038 80 136/62 09/28 1919 93 Nasal 3.0L Cannula 09/28 1600 Nasal 4.0L Cannula 09/28 1440 98.2 80 20 136/62 96 Nasal 4.0L Cannula Intake & Output 09/29 1600 09/29 0800 09/29 0000 09/28 1600 09/28 0809/28 0000 Intake Total 800 400 820 800 520 Output Total 400 Balance 800 400 420 800 520 Intake, IV 600 100 800 400 Intake, Oral 200 400 720 120 Number 2 1 6 Bowel Movements Output, Urine 400 Patient 138 lb 141 lb Weight Weight Bed scale Measurement Method Physical Exam: General: no apparent distress. Alert. Eyes: No obvious scleral icterus. HEENT: No jugular venous distention or abnormal jugular venous pulsations. Cardiovascular: Normal intensity S1/S2. Irregular, pacemaker noted Respiratory: Mildly increased air entry at the bases Abdomen: no guarding or rebound tenderness. Musculoskeletal: No clubbing or cyanosis noted Skin: warm Neurologic: No gross focal deficits noted. Current Medications: Current Medications Sig/Yesy Start time Last Medication Dose Route Stop Time Status Admin Acetaminophen 650 MG Q4P PRN 09/27 2330 AC 09/29 PO 0913 Albuterol Sulfate 3 ML BID 09/26 2099 AC 09/29 INH 1036 Albuterol Sulfate 2 PUF Q4-6 PRN PRN 09/25 0300 AC 09/25 INH 0841 Atenolol 50 MG BID 09/28 2099 AC 09/29 PO 0916 Benzocaine/Menthol 1 FELIX Q2P PRN 09/25 1230 AC 09/25 PO 1345 Ceftriaxone Sodium 1,000 MG DAILY 09/25 899 AC 09/29 IV 0913 Dabigatran 150 MG BID 09/26 899 AC 09/29 PO 0914 Digoxin 0.125 MG DAILY 09/25 899 AC 09/29 PO 09 Diltiazem HCl 180 MG DAILY 09/29 899 AC 09/29 PO 914 Diltiazem HCl 120 MG DAILY 09/25 899 DC 09/28 PO 0833 Docusate Sodium 100 MG DAILY 09/26 933 AC 09/27 PO 08 Escitalopram Oxalate 10 MG DAILY 09/26 2330 AC 09/29 PO 913 Furosemide 40 MG DAILY 09/26 1101 AC 09/29 PO 09 Lisinopril 20 MG DAILY 09/28 918 AC 09/29 PO 09 Lorazepam 0 .STK-MED ONE 09/29 0002 DC .ROUTE Lorazepam 0.5 MG Q6-PRN PRN 09/25 0300 AC 09/29 IV 0008 Magnesium Oxide 0 .STK-MED ONE 09/29 1054 DC PO Magnesium Oxide 400 MG BID 09/29 953 AC 09/29 PO 09/30 2101 1054 Metoclopramide HCl 0 .STK-MED ONE 09/28 1709 DC .ROUTE Metoclopramide HCl 10 MG ONCE ONE 09/28 1645 DC 09/28 IV 09/28 1646 1711 Metronidazole 500 MG IQ8 09/26 799 AC 09/29 N/A 1 UNIT IV 0913 Morphine Sulfate 4 MG Q2-3 HRS NEEDED.. 09/25 0400 DC 09/26 IV 0321 Morphine Sulfate 2 MG Q2-3 HRS NEEDED.. 09/25 0245 DC 09/27 IV 1146 Ondansetron HCl 4 MG Q6P PRN 09/25 0245 AC 09/25 IV 0325 Oxycodone HCl 2.5 MG Q6P PRN 09/29 07 AC PO Oxycodone HCl 5 MG Q6-PRN PRN 09/29 07 AC PO Pantoprazole Sodium 40 MG DAILY 09/25 899 DC 09/28 IV 0830 Potassium Chloride 20 MEQ Q20H 09/29 08 AC 09/29 Dextrose/Sodium 1,000 ML IV 1055 Chloride Potassium Chloride 20 MEQ CONTINOUS INFUSION 09/29 714 CAN IV Potassium Chloride 20 MEQ .[id number] 09/28 1645 DC 09/28 Dextrose/Sodium 1,000 ML IV 2017 Chloride Potassium Chloride 20 MEQ BID 09/29 915 AC 09/29 PO 913 Potassium Chloride 20 MEQ Q10H 09/25 1015 DC 09/28 Dextrose/Sodium 1,000 ML IV 0833 Chloride Results Last 48 Hrs of Labs/Mics: Laboratory Tests 09/29/17 06: Anion Gap 5, Estimated GFR > 60, BUN/Creatinine Ratio 33.3 H, CBC w Diff NO MAN DIFF REQ, RBC 3.29 L, MCV 100.9 H, MCH 33.8 H, MCHC 33.5, RDW 14.4, MPV 8.7, Gran % 68.7, Lymphocytes % 17.0 L, Monocytes % 12.6 H, Eosinophils % 1.4, Basophils % 0.3, Absolute Granulocytes 7.9 H, Absolute Lymphocytes 2.0, Absolute Monocytes 1.5 H, Absolute Eosinophils 0.2, Absolute Basophils 0 09/28/17608: Anion Gap 9, Estimated GFR > 60, BUN/Creatinine Ratio 27.1 H, Magnesium 1.7, CBC w Diff NO MAN DIFF REQ, RBC 3.41 L, MCV 100.6 H, MCH 33.6 H, MCHC 33.4, RDW 14.9 H, MPV 9.1, Gran % 82.2 H, Lymphocytes % 10.2 L, Monocytes % 7.4, Eosinophils % 0.1, Basophils % 0.1, Absolute Granulocytes 10.6 H, Absolute Lymphocytes 1.3, Absolute Monocytes 1.0 H, Absolute Eosinophils 0, Absolute Basophils 0 Microbiology 09/28 2151 STOOL: Clostridium difficile Toxin A & B - COMP Recent Imaging Studies: Telemetry tracings were personally reviewed and showed atrial fibrillation with occasional pacing Chest x-ray Interval development of pulmonary edema with small bilateral pleural effusions. Findings are superimposed upon obstructive lung disease. Assessment/Plan Assessment/Plan 1. Chronic atrial fibrillation on Pradaxa 2. HFpEF 3. Hypertension - BP elevated today 4. Hyperlipidemia 5. Status post laparoscopic to open repair of incarcerated small bowel hernia with small bowel resection Patient is hemodynamically stable; continue current antihypertensive regimen for now. Hemoglobin is grossly stable on the Pradaxa. Small pleural effusions noted on chest x-ray but she is not short of breath so she can be continued on her oral Lasix. Héctor Trimble MD [facility] Continue telemetry? No
[2017-09-29 14:56] VITALS: BP 124/68
[2017-09-29 21:41] VITALS: BP 146/60
[2017-09-30 07:25] VITALS: BP 132/66
[2017-09-30 14:56] VITALS: BP 130/70
[2017-09-30 22:37] VITALS: BP 144/60
[2017-10-01 06:57] VITALS: BP 152/66
[2017-10-01 08:09] LABS: ABSOLUTE BASOPHIL COUNT 0.1 /CUMM (0.0-0.2); ABSOLUTE EOSINOPHIL COUNT 0.2 /CUMM (0.0-0.7); ABSOLUTE GRANULOCYTE CT 11.6 /CUMM (1.4-6.5); ABSOLUTE LYMPH COUNT 2.1 /CUMM (1.2-3.4); ABSOLUTE MONOCYTE COUNT 1.7 /CUMM (0.10-0.60); BASOPHIL % 0.3 % (0.0-2.0); EOSINOPHIL % 1.4 % (0-5); GRANULOCYTE % 74.1 % (42.2-75.2); HEMATOCRIT 33.8 % (37-47); MEAN CORPUSCULAR HGB 33.4 PG (27.0-31.0); MEAN CORPUSCULAR HGB CONC 33.2 G/DL (33.0-37.0); MEAN CORPUSCULAR VOLUME 100.5 FL (81.0-99.0); MEAN PLATELET VOLUME 9.2 FL (7.4-10.4); PLATELET COUNT 274 /CUMM (130-400); RBC DISTRIBUTION WIDTH 14.9 % (11.5-14.5); RED BLOOD CELL CT 3.36 /CUMM (4.20-5.40); WHITE BLOOD CELL COUNT 15.7 /CUMM (4.8-10.8)
--- NOTE | 2017-10-01 10:24 | PN- General Surgery ---
See Addendum Subjective Subjective: Patient reports worsening bloating and discomfort with associated nausea and dry heaving this morning which improved with Zofran. Suspects Ru is making her nauseous. Tolerated a low fiber diet last night, has not touched her tray this morning. Continues to have nonformed bms. Difficutly sleeping last night. OOB ambulating. Objective Vital Signs and I&Os Vital Signs Date Time Temp Pulse Resp B/P B/P Pulse O2 O2 Flow FiO2 Mean Ox Delivery Rate 10/01 656 98.4 66 18 152/66 94 Room Air 09/30 2237 98.2 76 18 144/60 95 Room Air 09/30 2114 64 144/60 09/30 1844 95 Room Air 09/30 1456 97.9 61 18 130/70 98 Room Air Intake & Output 10/01 1600 10/01 0800 10/01 0000 09/30 1600 09/30 0800 09/30 0000 Intake Total 450 800 900 500 120 Output Total Balance 450 800 900 500 120 Intake, IV 400 400 400 400 Intake, Oral 50 400 500 100 120 Number 1 2 5 3 5 Bowel Movements Patient 144 lb 144 lb Weight Weight Bed scale Bed scale Measurement Method Physical Exam: Gen - nad Cardiac - irregular Lungs - fair inspiratory effort, crackles bases Abd - softly distended, dressings x2 c/d/i, bs present, tender to palpation in RLQ with voluntary guarding Ext - no significant edema or calf pain Current Medications: Current Medications Sig/Yesy Start time Last Medication Dose Route Stop Time Status Admin Acetaminophen 650 MG Q4P PRN 09/27 2330 AC 10/01 PO 0012 Albuterol Sulfate 3 ML BID 09/26 2100 AC 09/30 INH 1844 Albuterol Sulfate 2 PUF Q4-6 PRN PRN 09/25 0300 AC 09/25 INH 0841 Atenolol 50 MG BID 09/28 2100 AC 09/30 PO 2114 Benzocaine/Menthol 1 FELIX Q2P PRN 09/25 1230 AC 09/29 PO 213 Ceftriaxone Sodium 1,000 MG DAILY 09/25 899 AC 09/29 IV 0913 Holt Butter/Shark 1 TK Q4P PRN 09/29 1600 AC Liver Oil TOP Dabigatran 150 MG BID 09/26 899 AC 09/30 PO 211 Digoxin 0.125 MG DAILY 09/25 899 AC 09/30 PO 09 Diltiazem HCl 180 MG DAILY 09/29 09 AC 09/30 PO 09 Docusate Sodium 100 MG DAILY 09/26 0934 AC 09/27 PO 08 Escitalopram Oxalate 10 MG DAILY 09/26 2330 AC 09/30 PO 09 Furosemide 40 MG DAILY 09/26 1101 AC 09/30 PO 09 Lisinopril 20 MG DAILY 09/28 09 AC 09/30 PO 09 Lorazepam 0.5 MG ONE ONE 10/01 011 DC 10/01 PO 10/01 0116 0113 Lorazepam 0.5 MG BID 09/29 2200 AC 09/30 PO 10/06 2159 2235 Magnesium Chloride 64 MG BID 09/30 09 AC 09/30 PO 211 Metronidazole 500 MG IQ8 09/26 799 AC 09/29 N/A 1 UNIT IV 2352 Ondansetron HCl 4 MG Q6P PRN 09/25 0245 AC 10/01 IV 0732 Oxycodone HCl 2.5 MG Q6P PRN 09/29 07 AC PO Oxycodone HCl 5 MG Q6-PRN PRN 09/29 07 AC PO Potassium Chloride 20 MEQ Q20H 09/30 799 DC 10/01 Dextrose/Sodium 1,000 ML IV 0021 Chloride Potassium Chloride 20 MEQ BID 09/28 09 AC 09/30 PO 2112 Results Last 48 Hours of Labs: Laboratory Tests 10/01 09/30 0630 0620 Chemistry Sodium (137 - 145 mmol/L) 136 L 134 L Potassium (3.5 - 5.1 mmol/L) 4.1 3.1 L Chloride (98 - 107 mmol/L) 106 103 Carbon Dioxide (22 - 30 mmol/L) 21 L 24 Anion Gap (5 - 16) 9 6 BUN (7 - 17 mg/dL) 15 20 H Creatinine (0.5 - 1.0 mg/dL) 0.5 0.7 Estimated GFR (>60 ml/min) > 60 > 60 BUN/Creatinine Ratio (7 - 25 %) 30.0 H 28.6 H Magnesium (1.6 - 2.3 mg/dL) 1.7 Hematology CBC w Diff NO MAN DIFF REQ WBC (4.8 - 10.8 /CUMM) 15.7 H RBC (4.20 - 5.40 /CUMM) 3.36 L Hgb (12.0 - 16.0 G/DL) 11.2 L Hct (37 - 47 %) 33.8 L MCV (81.0 - 99.0 FL) 100.5 H MCH (27.0 - 31.0 PG) 33.4 H MCHC (33.0 - 37.0 G/DL) 33.2 RDW (11.5 - 14.5 %) 14.9 H Plt Count (130 - 400 /CUMM) 274 MPV (7.4 - 10.4 FL) 9.2 Gran % (42.2 - 75.2 %) 74.1 Lymphocytes % (20.5 - 51.1 %) 13.2 L Monocytes % (1.7 - 9.3 %) 11.0 H Eosinophils % (0 - 5 %) 1.4 Basophils % (0.0 - 2.0 %) 0.3 Absolute Granulocytes (1.4 - 6.5 /CUMM) 11.6 H Absolute Lymphocytes (1.2 - 3.4 /CUMM) 2.1 Absolute Monocytes (0.10 - 0.60 /CUMM) 1.7 H Absolute Eosinophils (0.0 - 0.7 /CUMM) 0.2 Absolute Basophils (0.0 - 0.2 /CUMM) 0.1 Assessment/Plan Assessment/Plan 82 F POD 6 s/p ex lap, sb rxn and incarcerated right femoral hernia repair with mesh with postop ileus although having bms/flatus and worsening leukocytosis, hypokalemia resolved Trial low fiber diet Analgesics/antiemetics prn Rocephin/Flagyl x2 doses Reimage if sx persist/worsen Monitor BP, increase dilitiazem 240 mg if BP remains elevated DVT ppx - alps, pradaxa Ativan po hs for insomnia Resume humeria on 10/10 OOB ambulation TRC, encourage IS Appreciate cardiology involvement D/w Dr. Powers who is covering for Dr. Lewis Core Measures Venous Thromboembolism VTE Risk Factors Age>40 No Mechanical VTE Prophylaxis d/t N/A MechProphylax Ordered No VTE Pharm Prophylaxis d/t NA PharmProphylax ordered
[2017-10-01 14:31] VITALS: BP 120/56
--- NOTE | 2017-10-01 16:21 | RADIOLOGY REPORT ---
EXAMINATION: XR ABDOMEN MULTIPLE VIEWS CLINICAL INDICATION: Nausea, distention COMPARISON: Multiple previous, most recent 09/27/2017, CT 09/24/2017 TECHNIQUE: 2 views of the abdomen. FINDINGS: Multiple gas-filled dilated loops of small bowel are present in the left mid and lower abdomen and right lower quadrant. These bowel loops measure up to approximately 4.5 cm. On the upright view there are a few scattered air-fluid levels in the mid abdomen. Midline surgical bethany. Status post cholecystectomy. Surgical clips also identified in the right inguinal region. Dual-lead pacemaker with leads unchanged. Moderate cardiomegaly unchanged. Clear lungs. IMPRESSION: Persisting gaseous distention of the small bowel, not significantly changed compared to 4 days prior. Diagnostic considerations remain ileus, partial small bowel obstruction.
[2017-10-01 23:30] VITALS: BP 124/60
[2017-10-02 07:05] VITALS: BP 120/58
--- NOTE | 2017-10-02 07:40 | PN- General Surgery ---
Subjective Subjective: bloated, nauseous, not vomiting, some loose stool, some belching, denies flatus Objective Vital Signs and I&Os Vital Signs Date Time Temp Pulse Resp B/P B/P Pulse O2 O2 Flow FiO2 Mean Ox Delivery Rate 10/02 0705 98.4 54 18 120/58 96 Room Air 10/01 2330 98.6 69 18 124/60 96 Room Air 10/01 2104 69 146/58 10/01 1940 95 Room Air 10/01 1431 99.3 67 18 120/56 94 Room Air 10/01 1100 92 Room Air 10/01 1023 66 152/66 10/01 1023 66 152/66 Intake & Output 10/02 0810/02 0000 10/01 1600 10/01 0810/01 0000 09/30 1600 Intake Total 600 450 370 450 800 900 Output Total Balance 600 450 370 450 800 900 Intake, IV 600 250 20 400 400 400 Intake, Oral 200 350 50 400 500 Number 0 3 1 2 5 Bowel Movements Patient 144 lb Weight Weight Bed scale Measurement Method Physical Exam: gen- nad card-s1s2 pulm- no audible wheeze abd- distended, soft, tympanic, bethany cdi- some mild erythema inferior aspect of midline- no drainage ext- calves soft nt, some edema Results Last 48 Hours of Labs: Laboratory Tests 10/02 10/01 0618 0630 Chemistry Sodium (137 - 145 mmol/L) Pending 136 L Potassium (3.5 - 5.1 mmol/L) Pending 4.1 Chloride (98 - 107 mmol/L) Pending 106 Carbon Dioxide (22 - 30 mmol/L) Pending 21 L Anion Gap (5 - 16) Pending 9 BUN (7 - 17 mg/dL) Pending 15 Creatinine (0.5 - 1.0 mg/dL) Pending 0.5 Estimated GFR (>60 ml/min) > 60 BUN/Creatinine Ratio (7 - 25 %) Pending 30.0 H Hematology CBC w Diff Pending NO MAN DIFF REQ WBC (4.8 - 10.8 /CUMM) Pending 15.7 H RBC (4.20 - 5.40 /CUMM) Pending 3.36 L Hgb (12.0 - 16.0 G/DL) Pending 11.2 L Hct (37 - 47 %) Pending 33.8 L MCV (81.0 - 99.0 FL) Pending 100.5 H MCH (27.0 - 31.0 PG) Pending 33.4 H MCHC (33.0 - 37.0 G/DL) Pending 33.2 RDW (11.5 - 14.5 %) Pending 14.9 H Plt Count (130 - 400 /CUMM) Pending 274 MPV (7.4 - 10.4 FL) Pending 9.2 Gran % (42.2 - 75.2 %) 74.1 Lymphocytes % (20.5 - 51.1 %) 13.2 L Monocytes % (1.7 - 9.3 %) 11.0 H Eosinophils % (0 - 5 %) 1.4 Basophils % (0.0 - 2.0 %) 0.3 Absolute Granulocytes (1.4 - 6.5 /CUMM) 11.6 H Absolute Lymphocytes (1.2 - 3.4 /CUMM) 2.1 Absolute Monocytes (0.10 - 0.60 /CUMM) 1.7 H Absolute Eosinophils (0.0 - 0.7 /CUMM) 0.2 Absolute Basophils (0.0 - 0.2 /CUMM) 0.1 Assessment/Plan Assessment/Plan A- POD7 sp sb rsxn for incarcerated r femoral hernia, with low return bowel fxn likely due to postop ileus, with worsening leukocytosis P- dw attending- check ct ap now fu labs- watch wbc, lytes cont npo- try clrs later if improved and ct ok cont ivf cont home meds oob, ambulate will dw attending Core Measures Venous Thromboembolism VTE Risk Factors Age>40 No Mechanical VTE Prophylaxis d/t N/A MechProphylax Ordered No VTE Pharm Prophylaxis d/t NA PharmProphylax ordered
[2017-10-02 08:13] LABS: ABSOLUTE BASOPHIL COUNT 0.1 /CUMM (0.0-0.2); ABSOLUTE EOSINOPHIL COUNT 0.2 /CUMM (0.0-0.7); ABSOLUTE GRANULOCYTE CT 10.4 /CUMM (1.4-6.5); ABSOLUTE LYMPH COUNT 2.2 /CUMM (1.2-3.4); BASOPHIL % 0.3 % (0.0-2.0); EOSINOPHIL % 1.1 % (0-5); GRANULOCYTE % 70.3 % (42.2-75.2); HEMATOCRIT 31.8 % (37-47); MEAN CORPUSCULAR HGB 33.7 PG (27.0-31.0); MEAN CORPUSCULAR HGB CONC 33.7 G/DL (33.0-37.0); MEAN CORPUSCULAR VOLUME 100.2 FL (81.0-99.0); MEAN PLATELET VOLUME 8.8 FL (7.4-10.4); PLATELET COUNT 323 /CUMM (130-400); RBC DISTRIBUTION WIDTH 14.5 % (11.5-14.5); RED BLOOD CELL CT 3.17 /CUMM (4.20-5.40); WHITE BLOOD CELL COUNT 14.8 /CUMM (4.8-10.8)
[2017-10-02 13:17] VITALS: BP 132/70
[2017-10-02 15:00] VITALS: BP 122/58
--- NOTE | 2017-10-02 16:45 | CT SCAN REPORT ---
EXAMINATION: CT ABDOMEN AND PELVIS WITH CONTRAST CLINICAL INFORMATION: Abdominal distention. Small bowel obstruction. COMPARISON: 09/24/2017 TECHNIQUE: Multidetector volumetric imaging was performed from the superior aspect of the liver through the pubic symphysis following administration of oral contrast. Sagittal and coronal reformatted images were obtained on the technologist's workstation. DLP: 270.18 mGy-cm FINDINGS: LUNG BASES: Respiratory motion degrades the images. No definite suspicious findings. Pacer leads within the right atrium and ventricle. Coronary artery calcifications. LIVER, GALLBLADDER, AND BILIARY TREE: Decreased intrahepatic biliary dilatation. The liver is normal in size. No focal liver lesions identified. Cholecystectomy. Dilatation of the common bile duct is decreased since the prior study. PANCREAS: Unremarkable. SPLEEN: Unremarkable. ADRENAL GLANDS: Unremarkable. KIDNEYS AND URETERS: The kidneys are poorly assessed without IV contrast. These are better seen on the prior study from 09/24/2017 which incorporated IV contrast. In brief, there are multiple cortically based low-density lesions seen, larger of which are consistent with cysts. The smaller too small to characterize statistically most likely represent the same. There is been no significant interval change. BLADDER: Underdistended and not well evaluated on the current study. GASTROINTESTINAL TRACT: The patient has had an interval small bowel resection likely involving jejunal loops in the right hemiabdomen. The anastomosis is patent and contrast is seen passing through the bowel on either side of the anastomosis. The previously seen sharp transition point within the right inguinal hernia is less pronounced on the current study, although there is persistently herniated bowel into the hernia. The degree of edematous changes and the fact that the oral contrast material has not yet reached these loops of bowel makes separation of bowel loops within the hernia very difficult to assess. There are superficial surgical bethany in the right inguinal region, suggesting possible prior surgical attempt at reducing the hernia. There is curvilinear material in a teardrop shaped that is now seen adjacent to the common iliac vessels which was not definitely seen on the prior study which may represent hernia mesh material, however correlation with surgical history is recommended. This is seen in an area of previous transition point on the prior study. The majority of distended small bowel loops involved the more proximal small bowel. Fluid is seen within the cecum and right hemicolon without significant distention. The terminal ileum is of normal caliber and appearance distal to the hernia. Diverticulosis without CT evidence of diverticulitis. ABDOMINAL WALL: Right inguinal hernia containing small bowel loops as detailed above. LYMPH NODES: Poorly evaluated due to lack of IV contrast and ascites/stranding of the intra-abdominal fat. No bulky adenopathy seen. VASCULAR: Atherosclerosis abdominal aorta without evidence of aneurysm. PELVIC VISCERA: Hysterectomy. OSSEOUS STRUCTURES: Multilevel degenerative changes of the spine with spondylolisthesis. No acute or suspicious osseous abnormality. IMPRESSION: 1. Interval appearance of small bowel resection with surgical anastomosis in the right hemiabdomen which is widely patent with contrast flowing through both sides of the anastomosis. 2. Increased number of dilated small bowel loops, now including more distal small bowel. The largest and most distended small bowel loops are more proximal and contain bright oral contrast. There is an inguinal hernia that still remains that contains small bowel loops, however the small bowel loops leading into this hernia are less distended than the more proximal loops. This is most suggestive of postsurgical ileus but some mechanical obstructive process involving this inguinal hernia is not entirely excluded based on this exam alone. Repeat follow-up CT in 1-2 hours is recommended to follow the progression of contrast through the small bowel. 3. Multiple other nonacute findings as above. This critical result was discussed with Dr. Queen at 12:10pm and surgical PA, Inessa Dela Cruz at 1:30 PM on 10/02/2017 and it was ascertained that the content and urgency of the report was understood at the time of direct communication.
--- NOTE | 2017-10-02 16:45 | CT SCAN REPORT ---
EXAMINATION: CT PELVIS WITHOUT CONTRAST CLINICAL INFORMATION: Small bowel obstruction. Evaluate contrast progression and small bowel obstruction. COMPARISON: Same day at 11:16 AM, 09/24/2017. TECHNIQUE: Helical scanning was performed with submillimeter collimation through the pelvis. Sagittal and coronal multiplanar 2-D reconstructions were obtained. DLP: 180.75 mGy-cm FINDINGS: PELVIS: There has been interval progression of the contrast material into the distal small bowel and into the cecum. There is a right inguinal hernia present containing distal ileal loops, however contrast does pass into the cecum indicating this is not a fully obstructive process. The degree of small bowel distention is similar when compared with the prior study with multiple air-fluid levels. Bowel loops leading to the inguinal hernia continue to be distended, however the loops of the more proximal jejunum appear to be more distended than the ileal loops, suggesting postsurgical ileus rather than mechanical obstruction although there still remains the possibility of some degree of mechanical obstruction involving the inguinal hernia. Diverticulosis of the partially imaged colon without CT evidence of diverticulitis. Fluid is seen within much of the nondilated colon. Small ascites. The bladder is underdistended and not well evaluated. Mild body wall edema. Surgical clips of the midline and periumbilical region as well as of the right lower quadrant. Surgical mesh material is again noted within the femoral canal. OSSEOUS STRUCTURES: No acute or suspicious osseous abnormality. IMPRESSION: 1. Contrast material has progressed through the small bowel and is now seen within the cecum. There is a right inguinal hernia containing distal loops of ileum, however the most distended portions of small bowel are more proximal. The constellation of these findings is most suggestive of postoperative ileus. Whether there is a component of partial mechanical obstruction from the right inguinal hernia remains a possibility. 2. Postsurgical changes status post small bowel resection and right femoral hernia mesh repair are unchanged.
[2017-10-02 23:25] VITALS: BP 112/80
[2017-10-03 06:42] VITALS: BP 114/52
[2017-10-03 07:40] LABS: ABSOLUTE BASOPHIL COUNT 0 /CUMM (0.0-0.2); ABSOLUTE EOSINOPHIL COUNT 0.2 /CUMM (0.0-0.7); ABSOLUTE GRANULOCYTE CT 9.4 /CUMM (1.4-6.5); ABSOLUTE LYMPH COUNT 1.8 /CUMM (1.2-3.4); ABSOLUTE MONOCYTE COUNT 1.6 /CUMM (0.10-0.60); BASOPHIL % 0.3 % (0.0-2.0); EOSINOPHIL % 1.3 % (0-5); GRANULOCYTE % 72.3 % (42.2-75.2); HEMATOCRIT 28.4 % (37-47); MEAN CORPUSCULAR HGB 33.5 PG (27.0-31.0); MEAN CORPUSCULAR HGB CONC 33.9 G/DL (33.0-37.0); MEAN CORPUSCULAR VOLUME 98.7 FL (81.0-99.0); MEAN PLATELET VOLUME 8.4 FL (7.4-10.4); PLATELET COUNT 346 /CUMM (130-400); RBC DISTRIBUTION WIDTH 14.6 % (11.5-14.5); RED BLOOD CELL CT 2.88 /CUMM (4.20-5.40); WHITE BLOOD CELL COUNT 12.9 /CUMM (4.8-10.8)
--- NOTE | 2017-10-03 08:34 | PN- General Surgery ---
Subjective Subjective: Patient reports pain/abdominal distenstion is improving. Reports passing minimal flatus and last bm was loose at 4 this morning. She is tolerating sips of water/ ice chips without nausea, vomiting or belching. She offers no other complaints. Objective Vital Signs and I&Os Vital Signs Date Time Temp Pulse Resp B/P B/P Pulse O2 O2 Flow FiO2 Mean Ox Delivery Rate 10/03 0642 98.7 58 18 114/52 93 Room Air 10/02 2325 98.3 63 18 112/80 90 Room Air 10/02 2115 95 Room Air 10/02 2044 64 142/60 10/02 1600 Room Air 10/02 1500 98.2 63 16 122/58 92 Room Air 10/02 1317 66 132/70 Intake & Output 10/03 0810/03 0000 10/02 0810/02 0000 Intake Total 306 823 5902 600 450 Output Total Balance 792 411 7698 600 450 Intake, IV 600 600 300 600 250 Intake, Oral 50 100 1600 200 Number 5 4 0 Bowel Movements Patient 149 lb Weight Physical Exam: Gen - nad Cardiac - S1S2, irregular Abd - soft, less distended, faint bs, midline incision clsoed with bethany with firm ecchymosis on inferior aspect, no drainage noted/expressed, right groin incisions clsoed with bethany with mild erythema from tape, appropriately tender , no rebound or guarding Ext - alps in place, no significant edema or calf pain Current Medications: Current Medications Sig/Yesy Start time Last Medication Dose Route Stop Time Status Admin Acetaminophen 0 .STK-MED ONE 10/02 0847 DC IV Acetaminophen 1,000 MG ONCE ONE 10/02 0945 DC 10/02 N/A 1 UNIT IV 10/02 0959 1000 Acetaminophen 650 MG Q4P PRN 09/27 2330 AC 10/03 PO 0603 Albuterol Sulfate 3 ML Q4P PRN 10/01 1115 AC 10/02 INH 2115 Albuterol Sulfate 2 PUF Q4-6 PRN PRN 09/25 0300 AC 09/25 INH 0841 Atenolol 50 MG BID 09/28 2100 AC 10/02 PO 2044 Benzocaine/Menthol 1 FELIX Q2P PRN 09/25 1230 AC 09/29 PO 2136 [place] Butter/Shark 1 TK Q4P PRN 09/29 1600 AC Liver Oil TOP Dabigatran 150 MG BID 09/26 09 AC 10/02 PO 2044 Dextrose/Sodium 1,000 ML Q13H 10/01 1615 AC 10/03 Chloride IV 0122 Digoxin 0.125 MG DAILY 09/25 09 AC 10/02 PO 1256 Diltiazem HCl 180 MG DAILY 09/29 09 AC 10/02 PO 1255 Docusate Sodium 100 MG DAILY 09/26 0934 AC 10/01 PO 1129 Escitalopram Oxalate 10 MG DAILY 09/26 2330 AC 10/02 PO 1257 Furosemide 40 MG DAILY 09/26 1101 AC 10/02 PO 1257 Lisinopril 20 MG DAILY 09/28 0919 AC 10/02 PO 1257 Lorazepam 0.5 MG AT BEDTIME PRN 10/01 1915 AC 10/03 IV 0020 Lorazepam 0.5 MG BID 09/29 2200 AC 10/02 PO 10/06 2159 1319 Magnesium Chloride 64 MG BID 09/30 09 AC 10/02 PO 2044 Ondansetron HCl 4 MG Q6P PRN 09/25 0245 AC 10/01 IV 2235 Oxycodone HCl 2.5 MG Q6P PRN 09/29 0700 AC PO Oxycodone HCl 5 MG Q6-PRN PRN 09/29 0700 AC PO Potassium Chloride 20 MEQ BID 09/28 0916 AC 10/02 PO 2044 Zinc Oxide 1 TK BID 10/01 1446 10/02 TOP 2044 Results Last 48 Hours of Labs: Laboratory Tests 10/03 10/03 0835 0639 Chemistry Sodium Pending Potassium Pending Chloride Pending Carbon Dioxide Pending Anion Gap Pending BUN Pending Creatinine Pending BUN/Creatinine Ratio Pending Hematology CBC w Diff NO MAN DIFF REQ WBC (4.8 - 10.8 /CUMM) 12.9 H RBC (4.20 - 5.40 /CUMM) 2.88 L Hgb (12.0 - 16.0 G/DL) 9.6 L Hct (37 - 47 %) 28.4 L MCV (81.0 - 99.0 FL) 98.7 MCH (27.0 - 31.0 PG) 33.5 H MCHC (33.0 - 37.0 G/DL) 33.9 RDW (11.5 - 14.5 %) 14.6 H Plt Count (130 - 400 /CUMM) 346 MPV (7.4 - 10.4 FL) 8.4 Gran % (42.2 - 75.2 %) 72.3 Lymphocytes % (20.5 - 51.1 %) 13.6 L Monocytes % (1.7 - 9.3 %) 12.5 H Eosinophils % (0 - 5 %) 1.3 Basophils % (0.0 - 2.0 %) 0.3 Absolute Granulocytes (1.4 - 6.5 /CUMM) 9.4 H Absolute Lymphocytes (1.2 - 3.4 /CUMM) 1.8 Absolute Monocytes (0.10 - 0.60 /CUMM) 1.6 H Absolute Eosinophils (0.0 - 0.7 /CUMM) 0.2 Absolute Basophils (0.0 - 0.2 /CUMM) 0 / 0618 Chemistry Sodium (137 - 145 mmol/L) 132 L Potassium (3.5 - 5.1 mmol/L) 4.7 Chloride (98 - 107 mmol/L) 104 Carbon Dioxide (22 - 30 mmol/L) 23 Anion Gap (5 - 16) 4 L BUN (7 - 17 mg/dL) 16 Creatinine (0.5 - 1.0 mg/dL) 0.8 Estimated GFR (>60 ml/min) > 60 BUN/Creatinine Ratio (7 - 25 %) 20.0 Hematology CBC w Diff NO MAN DIFF REQ WBC (4.8 - 10.8 /CUMM) 14.8 H RBC (4.20 - 5.40 /CUMM) 3.17 L Hgb (12.0 - 16.0 G/DL) 10.7 L Hct (37 - 47 %) 31.8 L MCV (81.0 - 99.0 FL) 100.2 H MCH (27.0 - 31.0 PG) 33.7 H MCHC (33.0 - 37.0 G/DL) 33.7 RDW (11.5 - 14.5 %) 14.5 Plt Count (130 - 400 /CUMM) 323 MPV (7.4 - 10.4 FL) 8.8 Gran % (42.2 - 75.2 %) 70.3 Lymphocytes % (20.5 - 51.1 %) 14.8 L Monocytes % (1.7 - 9.3 %) 13.5 H Eosinophils % (0 - 5 %) 1.1 Basophils % (0.0 - 2.0 %) 0.3 Absolute Granulocytes (1.4 - 6.5 /CUMM) 10.4 H Absolute Lymphocytes (1.2 - 3.4 /CUMM) 2.2 Absolute Monocytes (0.10 - 0.60 /CUMM) 2.0 H Absolute Eosinophils (0.0 - 0.7 /CUMM) 0.2 Absolute Basophils (0.0 - 0.2 /CUMM) 0.1 Recent Imaging Studies: SERVICE DATE: 10/02/17- EXAM TYPE: CAT - CT ABD & PELVIS W/ ORAL CONTRA EXAMINATION: CT ABDOMEN AND PELVIS WITH CONTRAST CLINICAL INFORMATION: Abdominal distention. Small bowel obstruction. COMPARISON: 09/24/2017 TECHNIQUE: Multidetector volumetric imaging was performed from the superior aspect of the liver through the pubic symphysis following administration of oral contrast. Sagittal and coronal reformatted images were obtained on the technologist's workstation. DLP: 270.18 mGy-cm FINDINGS: LUNG BASES: Respiratory motion degrades the images. No definite suspicious findings. Pacer leads within the right atrium and ventricle. Coronary artery calcifications. LIVER, GALLBLADDER, AND BILIARY TREE: Decreased intrahepatic biliary dilatation. The liver is normal in size. No focal liver lesions identified. Cholecystectomy. Dilatation of the common bile duct is decreased since the prior study. PANCREAS: Unremarkable. SPLEEN: Unremarkable. ADRENAL GLANDS: Unremarkable. KIDNEYS AND URETERS: The kidneys are poorly assessed without IV contrast. These are better seen on the prior study from 09/24/2017 which incorporated IV contrast. In brief, there are multiple cortically based low-density lesions seen, larger of which are consistent with cysts. The smaller too small to characterize statistically most likely represent the same. There is been no significant interval change. BLADDER: Underdistended and not well evaluated on the current study. GASTROINTESTINAL TRACT: The patient has had an interval small bowel resection likely involving jejunal loops in the right hemiabdomen. The anastomosis is patent and contrast is seen passing through the bowel on either side of the anastomosis. The previously seen sharp transition point within the right inguinal hernia is less pronounced on the current study, although there is persistently herniated bowel into the hernia. The degree of edematous changes and the fact that the oral contrast material has not yet reached these loops of bowel makes separation of bowel loops within the hernia very difficult to assess. There are superficial surgical bethany in the right inguinal region, suggesting possible prior surgical attempt at reducing the hernia. There is curvilinear material in a teardrop shaped that is now seen adjacent to the common iliac vessels which was not definitely seen on the prior study which may represent hernia mesh material, however correlation with surgical history is recommended. This is seen in an area of previous transition point on the prior study. The majority of distended small bowel loops involved the more proximal small bowel. Fluid is seen within the cecum and right hemicolon without significant distention. The terminal ileum is of normal caliber and appearance distal to the hernia. Diverticulosis without CT evidence of diverticulitis. ABDOMINAL WALL: Right inguinal hernia containing small bowel loops as detailed above. LYMPH NODES: Poorly evaluated due to lack of IV contrast and ascites/stranding of the intra-abdominal fat. No bulky adenopathy seen. VASCULAR: Atherosclerosis abdominal aorta without evidence of aneurysm. PELVIC VISCERA: Hysterectomy. OSSEOUS STRUCTURES: Multilevel degenerative changes of the spine with spondylolisthesis. No acute or suspicious osseous abnormality. IMPRESSION: 1. Interval appearance of small bowel resection with surgical anastomosis in the right hemiabdomen which is widely patent with contrast flowing through both sides of the anastomosis. 2. Increased number of dilated small bowel loops, now including more distal small bowel. The largest and most distended small bowel loops are more proximal and contain bright oral contrast. There is an inguinal hernia that still remains that contains small bowel loops, however the small bowel loops leading into this hernia are less distended than the more proximal loops. This is most suggestive of postsurgical ileus but some mechanical obstructive process involving this inguinal hernia is not entirely excluded based on this exam alone. Repeat follow-up CT in 1-2 hours is recommended to follow the progression of contrast through the small bowel. 3. Multiple other nonacute findings as above. This critical result was discussed with Dr. Queen at 12:10pm and surgical PA, Inessa Dela Cruz at 1:30 PM on 10/02/2017 and it was ascertained that the content and urgency of the report was understood at the time of direct communication. DICTATED BY: Ciara Mcrae MD DATE/TIME DICTATED:10/02/171143 DIRECTOR OF DISTANCE LEARNING:DONNA DATE/TIME TRANSCRIBED:10/02/171143 Assessment/Plan Assessment/Plan 82 F POD 8 s/p ex lap, repair of r incarcerated femoral hernia with biological mesh, now with partial sbo due right inguinal hernia containing bowel, contrast seen passing through on CT scan and return of bowel function Cont conservative management Advance to clears, IVF Start keflex 500 bid Cont pradaxa OOB ambulate TRC, encourage IS Labs reviewed, white count downtrending, monitor H&H Anticipate elective inguinal hernia repair if sbo resolves w/ conservative management Seen and discussed with Dr. Powers Core Measures Venous Thromboembolism VTE Risk Factors Age>40 No Mechanical VTE Prophylaxis d/t N/A MechProphylax Ordered No VTE Pharm Prophylaxis d/t NA PharmProphylax ordered
[2017-10-03 14:47] VITALS: BP 112/64
[2017-10-03 22:16] VITALS: BP 110/60
[2017-10-04 07:05] VITALS: BP 108/56
--- NOTE | 2017-10-04 07:30 | PN- General Surgery ---
Subjective Subjective: Patient denies pain, reports abdominal distenstion is improving. Passing more flatus and having multiple loose bms, 4 overnight. She is tolerating clears without nausea, vomiting or belching. She offers no other complaints. Objective Vital Signs and I&Os Vital Signs Date Time Temp Pulse Resp B/P B/P Pulse O2 O2 Flow FiO2 Mean Ox Delivery Rate 10/04 07 98.3 56 18 108/56 98 Room Air 10/03 2216 52 18 110/60 98 Room Air 10/03 2120 Room Air 10/03 2039 56 112/64 10/03 1447 97.4 67 18 112/64 99 Room Air 10/03 0933 68 120/60 10/03 0933 68 120/60 10/03 0931 68 120/60 Intake & Output 10/04 0000 10/03 1600 10/03 0810/03 0000 10/02 1600 Intake Total 400 200 640 096 804 5243 Output Total Balance 400 200 640 609 638 6638 Intake, IV 400 200 400 600 600 300 Intake, Oral 240 50 100 1600 Number 3 2 3 5 4 Bowel Movements Patient 147 lb 149 lb Weight Weight Bed scale Measurement Method Physical Exam: Gen - nad Cardiac - S1S2, irregular Abd - soft, less distended, bs present, midline incision closeed with bethany with firm ecchymosis on inferior aspect, no drainage noted/expressed, right groin incision clsoed with bethany with mild erythema from tape, appropriately tender, no rebound or guarding Ext - no significant edema or calf pain Current Medications: Current Medications Sig/Yesy Start time Last Medication Dose Route Stop Time Status Admin Acetaminophen 650 MG Q4P PRN 09/27 2330 AC 10/03 PO 2225 Albuterol Sulfate 3 ML Q4P PRN 10/01 1115 AC 10/02 INH 2115 Albuterol Sulfate 2 PUF Q4-6 PRN PRN 09/25 0300 AC 09/25 INH 0841 Atenolol 50 MG BID 09/28 2100 AC 10/03 PO 203 Benzocaine/Menthol 1 FELIX Q2P PRN 09/25 1230 AC 09/29 PO 213 Cephalexin 500 MG BID 10/03 09 AC 10/03 PO 10/04 0859 203 [place] Butter/Shark 1 TK Q4P PRN 09/29 1600 AC Liver Oil TOP Dabigatran 150 MG BID 09/26 899 AC 10/03 PO 2039 Dextrose/Sodium 1,000 ML Q13H 10/01 1615 DC 10/03 Chloride IV 1023 Digoxin 0.125 MG DAILY 09/25 899 AC 10/03 PO 0931 Diltiazem HCl 180 MG DAILY 09/29 09 AC 10/03 PO 0934 Docusate Sodium 100 MG DAILY 09/26 0934 AC 10/01 PO 1129 Escitalopram Oxalate 10 MG DAILY 09/26 2330 AC 10/03 PO 0933 Furosemide 40 MG DAILY 09/26 1101 AC 10/03 PO 0933 Lisinopril 20 MG DAILY 09/28 918 AC 10/03 PO 0933 Lorazepam 0.5 MG AT BEDTIME PRN 10/01 1915 AC 10/03 IV 0020 Lorazepam 0.5 MG BID 09/29 2200 AC 10/03 PO 10/06 215 2039 Magnesium Chloride 64 MG BID 09/30 09 AC 10/03 PO 2039 Ondansetron HCl 4 MG Q6P PRN 09/25 0245 AC 10/01 IV 2235 Oxycodone HCl 2.5 MG Q6P PRN 09/29 0700 AC PO Oxycodone HCl 5 MG Q6-PRN PRN 09/29 0700 AC PO Potassium Chloride 20 MEQ BID 09/28 0916 AC 10/03 PO 2039 Sodium Chloride 1,000 ML Q20H 10/03 1100 AC 10/04 IV 0434 Zinc Oxide 1 TK BID 10/01 1446 AC 10/03 TOP 1629 Results Last 48 Hours of Labs: Laboratory Tests 10/04 10/03 10/03 0636 0835 0639 Chemistry Sodium (137 - 145 mmol/L) Pending 130 L Potassium (3.5 - 5.1 mmol/L) Pending 4.3 Chloride (98 - 107 mmol/L) Pending 104 Carbon Dioxide (22 - 30 mmol/L) Pending 20 L Anion Gap (5 - 16) Pending 6 BUN (7 - 17 mg/dL) Pending 13 Creatinine (0.5 - 1.0 mg/dL) Pending 0.7 Estimated GFR (>60 ml/min) > 60 BUN/Creatinine Ratio (7 - 25 %) Pending 18.6 Hematology CBC w Diff Pending NO MAN DIFF REQ WBC (4.8 - 10.8 /CUMM) Pending 12.9 H RBC (4.20 - 5.40 /CUMM) Pending 2.88 L Hgb (12.0 - 16.0 G/DL) Pending 9.6 L Hct (37 - 47 %) Pending 28.4 L MCV (81.0 - 99.0 FL) Pending 98.7 MCH (27.0 - 31.0 PG) Pending 33.5 H MCHC (33.0 - 37.0 G/DL) Pending 33.9 RDW (11.5 - 14.5 %) Pending 14.6 H Plt Count (130 - 400 /CUMM) Pending 346 MPV (7.4 - 10.4 FL) Pending 8.4 Gran % (42.2 - 75.2 %) 72.3 Lymphocytes % (20.5 - 51.1 %) 13.6 L Monocytes % (1.7 - 9.3 %) 12.5 H Eosinophils % (0 - 5 %) 1.3 Basophils % (0.0 - 2.0 %) 0.3 Absolute Granulocytes (1.4 - 6.5 /CUMM) 9.4 H Absolute Lymphocytes (1.2 - 3.4 /CUMM) 1.8 Absolute Monocytes (0.10 - 0.60 /CUMM) 1.6 H Absolute Eosinophils (0.0 - 0.7 /CUMM) 0.2 Absolute Basophils (0.0 - 0.2 /CUMM) 0 Assessment/Plan Assessment/Plan 82 F POD 9 s/p ex lap, repair of r incarcerated femoral hernia with biological mesh now with right inguinal hernia containing bowel, contrast seen passing through on CT scan and bowel function Cont conservative management Advance to fulls D/c IVF once adequate oral intake Cont keflex 500 bid Cont pradaxa ? resume loperamine for dirrhea OOB ambulate TRC, encourage IS F/u labs Anticipate outpt inguinal hernia repair if sbo resolves w/ conservative management Will d/w Dr. Powers Core Measures Venous Thromboembolism VTE Risk Factors Age>40 No Mechanical VTE Prophylaxis d/t N/A MechProphylax Ordered No VTE Pharm Prophylaxis d/t NA PharmProphylax ordered
[2017-10-04 07:50] LABS: ABSOLUTE BASOPHIL COUNT 0 /CUMM (0.0-0.2); ABSOLUTE EOSINOPHIL COUNT 0.1 /CUMM (0.0-0.7); ABSOLUTE GRANULOCYTE CT 6.4 /CUMM (1.4-6.5); ABSOLUTE LYMPH COUNT 1.7 /CUMM (1.2-3.4); BASOPHIL % 0.5 % (0.0-2.0); EOSINOPHIL % 1.2 % (0-5); GRANULOCYTE % 68.6 % (42.2-75.2); HEMATOCRIT 29.1 % (37-47); MEAN CORPUSCULAR HGB 33.8 PG (27.0-31.0); MEAN CORPUSCULAR HGB CONC 33.6 G/DL (33.0-37.0); MEAN CORPUSCULAR VOLUME 100.5 FL (81.0-99.0); MEAN PLATELET VOLUME 8.2 FL (7.4-10.4); PLATELET COUNT 402 /CUMM (130-400); RBC DISTRIBUTION WIDTH 15.3 % (11.5-14.5); RED BLOOD CELL CT 2.89 /CUMM (4.20-5.40); WHITE BLOOD CELL COUNT 9.3 /CUMM (4.8-10.8)
[2017-10-04 14:10] VITALS: BP 124/58
[2017-10-04 22:00] VITALS: BP 144/60
--- NOTE | 2017-10-05 07:30 | PN- General Surgery ---
Subjective Subjective: Patient reports a headache this morning. She reports tolerating soup and toast yesterday for lunch and dinner. She reports softer and less frequent BMs. Continues to pass flatus and ambulate, she denies nausea, vomiting or belching. Objective Vital Signs and I&Os Vital Signs Date Time Temp Pulse Resp B/P B/P Pulse O2 O2 Flow FiO2 Mean Ox Delivery Rate 10/040 Room Air 10/04 220 97.8 60 20 144/60 98 Room Air 10/04 2112 60 144/60 10/04 204 96 Room Air 10/04 1410 98.4 64 20 124/58 99 Room Air 10/04 1356 94 Room Air Room Air 10/04 0949 98.3 56 108/56 Intake & Output 10/05 0000 10/04 1600 10/04 0810/04 0000 10/03 1600 Intake Total 880 880 850 400 200 640 Output Total Balance 880 880 850 400 200 640 Intake, IV 400 400 400 400 200 400 Intake, Oral 480 480 450 240 Number 1 1 3 3 2 3 Bowel Movements Patient 142 lb 147 lb Weight Weight Bed scale Bed scale Measurement Method Physical Exam: Gen - nad Cardiac - S1S2, irregular Abd - soft, less distended, bs present, midline incision closed with bethany with firm ecchymosis on inferior aspect, no drainage noted/expressed, right groin incision closed with bethany with mild erythema from tape, appropriately tender, no rebound or guarding Ext - no significant edema or calf pain Current Medications: Current Medications Sig/Yesy Start time Last Medication Dose Route Stop Time Status Admin Acetaminophen 650 MG Q4P PRN 09/27 2330 AC 10/05 PO 0121 Albuterol Sulfate 3 ML Q4P PRN 10/01 1115 AC 10/04 INH 2045 Albuterol Sulfate 2 PUF Q4-6 PRN PRN 09/25 0300 AC 09/25 INH 0841 Atenolol 50 MG BID 09/28 2100 AC 10/04 PO 211 Benzocaine/Menthol 1 FELIX Q2P PRN 09/25 1230 AC 09/29 PO 213 Cephalexin 500 MG BID 10/05 899 UNVr PO 10/10 2100 Cephalexin 500 MG BID 10/03 09 DC 10/03 PO 10/04 [place] Butter/Shark 1 TK Q4P PRN 09/29 1600 AC Liver Oil TOP Dabigatran 150 MG BID 09/26 09 AC 10/04 PO 2112 Digoxin 0.125 MG DAILY 09/25 09 AC 10/04 PO 0949 Diltiazem HCl 180 MG DAILY 09/29 09 AC 10/04 PO 0949 Docusate Sodium 100 MG DAILY 09/26 0934 AC 10/01 PO 1129 Escitalopram Oxalate 10 MG DAILY 09/26 2330 AC 10/04 PO 0949 Furosemide 40 MG DAILY 09/26 1101 AC 10/04 PO 0949 Lisinopril 20 MG DAILY 09/28 09 AC 10/04 PO 0949 Loperamide HCl 2 MG BID 10/04 0945 AC 10/04 PO 211 Loperamide HCl 0 .STK-MED ONE 10/04 0942 DC PO Lorazepam 0.5 MG AT BEDTIME PRN 10/01 1915 DC 10/03 IV 0020 Lorazepam 0.5 MG BID 09/29 2200 AC 10/04 PO 10/13 2158 2258 Magnesium Chloride 64 MG BID 09/30 09 AC 10/04 PO 2112 Ondansetron HCl 4 MG Q6P PRN 09/25 0245 AC 10/01 IV 2235 Oxycodone HCl 2.5 MG Q6P PRN 09/29 07 AC PO Oxycodone HCl 5 MG Q6-PRN PRN 09/29 0700 AC PO Potassium Chloride 20 MEQ BID 09/28 0916 AC 10/04 PO 2112 Sodium Chloride 1,000 ML Q20H 10/03 1100 DC 10/05 IV 0119 Zinc Oxide 1 TK BID 10/01 1446 AC 10/04 TOP 2115 Assessment/Plan Assessment/Plan 82 F POD 10 s/p ex lap, repair of r incarcerated femoral hernia with biological mesh now with right inguinal hernia containing bowel, tolerating clears Cont conservative management Advance to low fiber diet, d/c IVF Pain regimen prn, Tylenol for pain Cont keflex 500 bid Cont pradaxa Cont loperamine for diarrhea OOB ambulate TRC, encourage IS D/c tele Anticipate d/c today if tolerated low fiber diet Will require outpt right inguinal hernia repair in 4-6 weeks Will d/w Dr. Powers Core Measures Venous Thromboembolism VTE Risk Factors Age>40 No Mechanical VTE Prophylaxis d/t N/A MechProphylax Ordered No VTE Pharm Prophylaxis d/t NA PharmProphylax ordered
[2017-10-05 07:36] VITALS: BP 148/66
[2017-10-05 14:19] VITALS: BP 120/50
[2017-10-05] MEDS ORDERED: KEFLEX500 M1 PO (15:41)
[2017-10-05] MEDS ORDERED: IMODIUM A-D2 M2 PO (15:41)
== END 2017-10-05 18:40 | DRG 329 ==
LOC: ERH 19:55 → 1NO 09-25 02:54 → CRI 09-25 02:54 → 1NO 09-25 04:35 → ENPENDDIS 10-05 15:41 → ENTRNSPT 10-05 18:22 → 1NO 10-05 18:40 → CMPTRNSPT 10-05 18:48
PROVIDERS: Nurse Practitioner; Physician Assistant; Physician Assistant Surgical; Student in an Organized Health Care Education/Training Program
PROC: 0YU70JZ Supplement Right Femoral Region with Synthetic Substitute, Open Approach (ICD-10-PCS; principal; 2017-09-25)
PROC: 0DB80ZZ Excision of Small Intestine, Open Approach (ICD-10-PCS; 2017-09-25)
DX: K41.30 Unilateral femoral hernia, with obstruction, without gangrene, not specified as recurrent (principal); K55.011 Focal (segmental) acute (reversible) ischemia of small intestine; I50.32 Chronic diastolic (congestive) heart failure; K50.90 Crohn's disease, unspecified, without complications; K91.30 Postprocedural intestinal obstruction, unspecified as to partial versus complete; I48.2 Chronic atrial fibrillation; Z79.01 Long term (current) use of anticoagulants; I11.0 Hypertensive heart disease with heart failure; K40.90 Unilateral inguinal hernia, without obstruction or gangrene, not specified as recurrent; H35.30 Unspecified macular degeneration; Z95.0 Presence of cardiac pacemaker; Y83.8 Other surgical procedures as the cause of abnormal reaction of the patient, or of later complication, without mention of misadventure at the time of the procedure; Y92.230 Patient room in hospital as the place of occurrence of the external cause; Z88.0 Allergy status to penicillin; Z90.49 Acquired absence of other specified parts of digestive tract; Z90.710 Acquired absence of both cervix and uterus; Z79.899 Other long term (current) drug therapy; Z79.51 Long term (current) use of inhaled steroids; E78.5 Hyperlipidemia, unspecified; Z96.653 Presence of artificial knee joint, bilateral; F41.9 Anxiety disorder, unspecified; F32.9 Major depressive disorder, single episode, unspecified; H91.90 Unspecified hearing loss, unspecified ear
CPT/HCPCS: 1NP; 36415; 36592; 71046; 74018; 74021; 74176; 74177; 82436; 88307; 93005; 93010; 96374; 96375; 97116-GO; 97161-GP; 97530-GO; 99291; C1781; C9399; J0131; J0696; J1170; J1644; J2405; J2765; J3010; J3490; J7042; S5012